=== PATIENT | female | born 1955 | race Caucasian/White ===

== ENCOUNTER → 2021-06-23 12:03 | Outpatient (CLI) | payer MEDICAID, SELFPAY ==
--- NOTE | 2021-06-23 12:06 | BI_ITS ---
MAMMOGRAPHY - BILATERAL SCREENING REASON FOR EXAM: Female, 65 years old. Routine annual screening examination. PERTINENT HISTORY: Non-contributory. TECHNIQUE: Digital bilateral breast chelo (3D mammographic acquisition) in the CC and MLO projections. 2-D mediolateral oblique (MLO) and craniocaudad (CC) views of both breasts were obtained. CAD: Full Field Digital Mammography with Computer Added Detection was performed. COMPARISON: Comparison is made with prior outside examination dated 10/22/2017. FINDINGS: Breast Composition: There are scattered areas of fibroglandular density. There are no dominant masses or suspicious calcifications. No other significant abnormalities are identified. There has been no significant change since the prior study. BI/SCRN MAMM (CAD)W/CHELO BILAT IMPRESSION: Stable bilateral screening mammogram. Yearly follow-up mammogram recommended. (A) ASSESSMENT CATEGORY: BIRADS Category 1: Negative. A letter regarding these results will be sent to the patient by the facility within 30 days. Approximately 10% of breast cancers are not detected by mammography. A normal mammogram should not delay biopsy of a clinically suspicious abnormality. [id number] Electronically Signed: Krystian Choi MD at 13:39 EDT , Service support ,
== END ==
PROVIDERS: PCP Family Medicine; Referring Provider Family Medicine; Visit Provider Family Medicine
DX: Z12.31 Encounter for screening mammogram for malignant neoplasm of breast (principal)
CPT/HCPCS: 77063; 77067

== ENCOUNTER → 2022-08-25 | Outpatient (CLI) | payer MEDICARE, SELFPAY ==
[2022-09-03 22:00] LABS: HPV Reflexed? NOT INDICATED
== END | disposition home or self-care (01) ==
LOC: BFHLAB 13:08 → LABSPEC 13:11
PROVIDERS: PCP Family Medicine; Visit Provider Family Medicine
DX: Z12.4 Encounter for screening for malignant neoplasm of cervix (principal)
CPT/HCPCS: 88175; G0145

== ENCOUNTER → 2022-09-23 | Outpatient (CLI) | payer BC, SELFPAY ==
--- NOTE | 2022-09-23 12:25 | BI_ITS ---
MAMMOGRAPHY - BILATERAL SCREENING REASON FOR EXAM: Female, 67 years old. Routine annual screening examination. PERTINENT HISTORY: Non-contributory. TECHNIQUE: Digital bilateral breast chelo (3D mammographic acquisition) in the CC and MLO projections. 2-D mediolateral oblique (MLO) and craniocaudad (CC) views of both breasts were obtained. CAD: Full Field Digital Mammography with Computer Added Detection was performed. COMPARISON: Comparison is made with prior study 06/23/2021. FINDINGS: Breast Composition: There are scattered areas of fibroglandular density. There are no dominant masses or suspicious calcifications. Stable benign-appearing bilateral axillary nodes. No other significant abnormalities are identified. There has been no significant change since the prior study. BI/SCRN MAMM (CAD)W/CHELO BILAT IMPRESSION: Stable bilateral screening mammogram. Yearly follow-up mammogram recommended. (A) ASSESSMENT CATEGORY: BIRADS Category 2: Benign. A letter regarding these results will be sent to the patient by the facility within 30 days. Approximately 10% of breast cancers are not detected by mammography. A normal mammogram should not delay biopsy of a clinically suspicious abnormality. [id number] Electronically Signed: Krystian Choi MD at 13:15 EST ,
== END | disposition home or self-care (01) ==
LOC: OPBI 12:22
PROVIDERS: PCP Family Medicine; Visit Provider Family Medicine
DX: Z12.31 Encounter for screening mammogram for malignant neoplasm of breast (principal)
CPT/HCPCS: 77063; 77067

== ENCOUNTER → 2023-10-14 | Outpatient (CLI) | payer BC, SELFPAY ==
[2023-10-14 17:45] LABS: Absolute Lymphocyte Count 2.06 X10^3/uL (0.83-4.51); Absolute Neutrophil Count 3.5 X10^3/uL (2.0-7.7); Basophil# 0.05 X10^3/uL; Basophil% 0.8 % (0-1); Eosinophil# 0.13 X10^3/uL; Eosinophils% 2.1 % (0-5); Hematocrit 39.5 % (37-47); Hemoglobin 12.8 g/dL (12.0-15.0); Lymphocyte # 2.06 X10^3/ul (0.83-4.51); Lymphocyte % 33.3 % (19-41); Mean Corp Hgb Conc 32.4 g/dL (32-36); Mean Corpuscular Hgb 29.6 pg (27.0-32.0); Mean Corpuscular Volume 91.4 fL (81-99); Mean Platelet Vol. 9.9 fl (6.2-12.0); Monocyte# 0.45 X10^3/uL; Monocyte% 7.3 % (0-10); NRBC Flagged by Analyzer 0 % (0-5); Neutrophil # 3.45 X10^3/uL (2.7-7.7); Neutrophil % 55.9 % (47-70); Platelet Count 344 K/mm3 (150-450); RBC Distribution Width CV 12.5 % (11.6-14.6); RBC Distribution Width SD 41.9 fl (35.1-43.9); Red Blood Count 4.32 M/mm3 (4.2-5.4); White Blood Count 6.2 K/mm3 (4.4-11.0)
[2023-10-14 18:14] LABS: AST(SGOT) 22 U/L (15-37); Alanine Aminotransfer ALT/SGPT 43 U/L (13-56); Albumin, Serum 3.8 g/dL (3.2-5.0); Alkaline Phosphatase 101 U/L (45-117); Bilirubin, Direct 0.15 mg/dL (0.00-0.30); Globulin 3.2 g/dL (2.2-4.2)
== END | disposition home or self-care (01) ==
LOC: BFHLAB 14:26
PROVIDERS: PCP Family Medicine; Visit Provider Family Medicine
DX: I10 Essential (primary) hypertension (principal); E11.9 Type 2 diabetes mellitus without complications
CPT/HCPCS: 36415; 80076; 85025

== ENCOUNTER → 2023-11-23 | Outpatient (CLI) | payer MEDICARE, MEDICAID, SELFPAY ==
--- NOTE | 2023-11-23 14:30 | US_ITS ---
EXAM: US Abdomen Limited (quadrant) HISTORY: LT FLANK LUMP COMPARISON: None FINDINGS: Sonographic evaluation of the left flank performed. There is a well-defined fat-containing hernia protruding through the musculature at the site of the palpable lump. The neck measures 2.6 cm, and the herniated fat measures 5.1 x 5.1 x 2.3 cm. US/Abdomen Limited IMPRESSION: Herniated adipose tissue protruding through the muscles in the lower left flank. Finding particularly documented on the cine loop. The neck measures 2.6 cm. Electronically Signed: Fish Dumas MD at 11:07 EDT ,
== END | disposition home or self-care (01) ==
PROVIDERS: PCP Family Medicine; Referring Provider Family Medicine; Visit Provider Family Medicine
DX: R19.00 Intra-abdominal and pelvic swelling, mass and lump, unspecified site (principal)
CPT/HCPCS: 76705

== ENCOUNTER → 2023-12-07 | Outpatient (CLI) | payer MEDICARE, MEDICAID, SELFPAY ==
--- NOTE | 2023-12-07 14:44 | BI_ITS ---
MAMMOGRAPHY - BILATERAL SCREENING REASON FOR EXAM: Female, 68 years old. Routine annual screening examination. PERTINENT HISTORY: Non-contributory. TECHNIQUE: Digital bilateral breast chelo (3D mammographic acquisition) in the CC and MLO projections. 2-D mediolateral oblique (MLO) and craniocaudad (CC) views of both breasts were obtained. CAD: Full Field Digital Mammography with Computer Added Detection was performed. COMPARISON: Comparison is made with prior study dated September 23, 2022 and June 23, 2021. FINDINGS: Breast Composition: There are scattered areas of fibroglandular density. There are no dominant masses or suspicious calcifications. Stable 2.8 mm well-defined nodule in the slightly superior central aspect of the left breast. A notch is seen within it and this most likely represents a small lymph node. No other significant abnormalities are identified. There has been no significant change since the prior study. BI/SCRN MAMM (CAD)W/CHELO BILAT IMPRESSION: Stable bilateral screening mammogram. Yearly follow-up mammogram recommended. (A) ASSESSMENT CATEGORY: BIRADS Category 2: Benign. A letter regarding these results will be sent to the patient by the facility within 30 days. Approximately 10% of breast cancers are not detected by mammography. A normal mammogram should not delay biopsy of a clinically suspicious abnormality. [id number] Electronically Signed: Krystian Choi MD at 9:21 EDT ,
--- NOTE | 2023-12-07 14:44 | BD_ITS ---
STUDY: DUAL ENERGY X-RAY ABSORPTIOMETRY / DXA REASON FOR EXAM: Female, 68 years old. [id number] TECHNIQUE: Bone Mineral Density (BMD) measurements of lumbar spine and bilateral hips were obtained. COMPARISON: None. FINDINGS: Lumbar Spine (L1-L4): g/cm2 (0.914) / T-score (-0.9) / Z-score (0.9) Findings are suggestive of normal bone density with a low fracture risk. Left Femur Total: g/cm2 (0.906) / T-score (-0.3) / Z-score (1.1) Left Femoral Neck: g/cm2 (0.805) / T-score (-0.4) / Z-score (1.2) Right Femur Total: g/cm2 (0.849) / T-score (-0.8) / Z-score (0.6) Right Femoral Neck: g/cm2 (0.729) / T-score (-1.1) / Z-score (0.6) BD/Dexa Bone Density Study IMPRESSION: The patient is considered osteopenic as outlined below according to World Lewis Organization (WHO) criteria with a low fracture risk. Reference Information: The T-score is the number of standard deviations above or below the standard which is normal for young adults at their peak bone mineral density. The World Health Organization (WHO) interprets the T-scores as follows: Above -1 Normal bone density Between -1 and -2.5 Osteopenia Equal to / or below -2.5 Osteoporosis As a practical clinical guideline, osteopenia may be graded as follows: Mild -1 through -1.5 Moderate -1.6 through -2.0 Severe -2.1 through -2.4 The Z-score is the number of standard deviations above or below age-matched controls. A Z-score of less than -1.5 would be considered abnormal. References: 1. NIH Osteoporosis and Related Bone Diseases www osteo.org 2. International Society for Clinical Densitometry www iscd.org 3. National Osteoporosis Foundation www nof.org Electronically Signed: Krystian Choi MD at 13:31 EDT ,
== END | disposition home or self-care (01) ==
LOC: OPBI 14:42
PROVIDERS: PCP Family Medicine; Referring Provider Family Medicine; Visit Provider Family Medicine
DX: Z12.31 Encounter for screening mammogram for malignant neoplasm of breast (principal); M81.0 Age-related osteoporosis without current pathological fracture
CPT/HCPCS: 77063; 77067; 77080

== ENCOUNTER 2024-05-25 10:00 | Outpatient (CLI) | payer MEDICARE, MEDICAID, SELFPAY ==
[2024-05-31 13:48] LABS: Hemoglobin A1c 6.3 % (3.8-5.6)
[2024-05-31 13:49] LABS: Anion Gap 7 (5-15); BUN 20 mg/dL (7-18); BUN/Creat Ratio 25.1 RATIO (10-20); Calcium,Total 9.5 mg/dL (8.5-10.1); Chloride 99 mmol/L (98-107); EST Glomerular Filtration Rate 76 mL/min (>60); Est Glom Filt Rate - Afr Amer 92 mL/min (>60); Glucose 101 mg/dL (74-106); Potassium 3.8 mmol/L (3.5-5.1); Sodium Level 138 mmol/L (136-145)
== END 2024-05-25 23:00 | disposition home or self-care (01) ==
LOC: SDC 11-15 21:44
PROVIDERS: Anesthesiology; PCP Family Medicine; Referring Provider Surgery; Visit Provider Surgery
DX: Z01.818 Encounter for other preprocedural examination (principal); Z53.9 Procedure and treatment not carried out, unspecified reason
CPT/HCPCS: 36415; 80048; 83036; 93005

== ENCOUNTER → 2024-06-09 | Outpatient (CLI) | payer MEDICARE, MEDICAID, SELFPAY ==
[2024-06-09 18:22] LABS: Microalbumin:Creatinine Ratio 8.1 mg/g CRE (<30 mg/g CRE)
[2024-06-09 18:42] LABS: Vitamin B12 > 2000 pg/mL (211-911)
== END | disposition home or self-care (01) ==
LOC: BFHLAB 14:56
PROVIDERS: PCP Family Medicine; Referring Provider Family Medicine; Visit Provider Family Medicine
DX: E11.9 Type 2 diabetes mellitus without complications (principal)
CPT/HCPCS: 36415; 82043; 82570; 82607

== ENCOUNTER → 2024-07-10 | Outpatient (CLI) | payer MEDICARE, MEDICAID, SELFPAY ==
--- OUTSIDE RECORDS SUMMARY | 2024-07-10 08:28 | XMS RPT_ITS | CCD ---
Author Organization [facility] Care Team Providers Care [employer] Supervisor Name Role Phone Denisse TELLO, Sandra Dang Unavailable [phone] Alden SMITH, Kam Stone Unavailable [phone] MIEDEL, SUJATHA Primary Care Unavailable MIEDEL, SUJATHA Referring Unavailable ANA LOVE Attending Unavailable ISFANA ACKERMAN Attending Unavailable ISFORTANA Referring Unavailable MIEDEL, SUJATHA Primary Care Unavailable MIEDEL, SUJATHA Primary Care Unavailable MIEDEL, SUJATHA Primary Care Unavailable MIEDEL, SUJATHA Referring Unavailable ISFANA ACKERMAN Attending Unavailable MIEDEL, SUJATHA E Primary Care Unavailable DAMARISPITER Admitting Unavailabl e PITER OCAMPO Consulting Unavailabl PITER [place]on Attending Unavailabl e ISFANA ACKERMAN Referring Unavailable MIEDEL, SUJATHA E Primary Care Unavailable ANA LOVE Attending Unavailable ANA LOVE Referring Unavailable MIEDEL, SUJATHA E Primary Care Unavailable ANA LOVE Attending Unavailable MIEDEL, SUJATHA Admitting Unavailable MIEDEL, SUJATHA Primary Care Unavailable MIEDEL, SUJATHA Consulting Unavailable MIEDEL, SUJATHA Attending Unavailable PROVIDER, UNKNOWN Consulting Unavailable PROVIDER, UNKNOWN Consulting Unavailable MIEDEL, SUJATHA Primary Care Unavailable MIEDEL, SUJATHA Consulting Unavailable MIEDEL, SUJATHA Attending Unavailable MIEDEL, SUJATHA Admitting Unavailable PROVIDER, UNKNOWN Consulting Unavailable PROVIDER, UNKNOWN Consulting Unavailable MIEDEL, SUJATHA Primary Care Unavailable MIEDEL, SUJATHA Consulting Unavailable MIEDEL, SUJATHA Attending Unavailable MIEDEL, SUJATHA Admitting Unavailable PROVIDER, UNKNOWN Consulting Unavailable PROVIDER, UNKNOWN Consulting Unavailable LUCINDA MCELROY DO Admitting Unavailable LUCINDA MCELROY DO Primary Care Unavailable SUJATHA SILVERIO Consulting Unavailable LUCINDA MCELROY DO Attending Unavailable SUJATHA SILVERIO Referring Unavailable PROVIDER, UNKNOWN Consulting Unavailable PROVIDER, UNKNOWN Consulting Unavailable Allergies Allergy Classification Reported Allergen(s) Allergy Type Date of Onset Reaction(s) Facility (3 sources) Sulfonamides (Antibiotic) drug allergy 2 hives and can't breathe [facility] Work Phone: (1 source) Sulfonamides (Antibiotic); Translations: [SULFA (SULFONAMIDE ANTIBIOTICS)] Propensity to adverse reactions to drug (disorder) 2 [facility] Repository (1 source) Sulfonamides (Antibiotic) Drug allergy (disorder) [facility] Repository Medications Current Medications Medication Drug Class(es) Dates Sig (Normalized) Sig (Original) baclofen 10 mg oral tablet (2 sources) gamma-Aminobutyric Acid-ergic Agonist Start: 10-24-2021 End: 12-23-2021 take 1 tablet by mouth three times daily as needed BACLOFEN 10 MG TABS Take 1 tablet by mouth three times a day as needed baclofen [id number] Remedios Ingram LPN meloxicam 15 mg oral tablet (1 source) Nonsteroidal Anti-inflammatory Drug Start: 12-17-2021 End: 02-15-2022 take 1 tablet by mouth once daily MELOXICAM 15 MG TABS Take 1 tablet by mouth once a day meloxicam [id number] Sandra Salcedo MD Completed/Discontinued Medications Medication Drug Class(es) Dates Sig (Normalized) Sig (Original) atenolol 25 mg oral tablet (3 sources) beta-Adrenergic Ingrid Start: 3 take 1 tablet by mouth once daily ATENOLOL 25 MG TABS 1 tablet by mouth once a day atenolol [id number] Lupe Lorence AT 24 hr buPROPion hydrochloride 150 mg extended release oral tablet (3 sources) Aminoketone Start: 0 take 1 tablet by mouth once daily BUPROPION HCL ER (XL) 150 MG [id number] 1 tablet by mouth once a day bupropion hcl [id number] Lupe Lorence AT escitalopram 10 mg oral tablet (3 sources) Serotonin Reuptake Inhibitor Start: 0 take 1 tablet by mouth once daily ESCITALOPRAM OXALATE 10 MG TABS 1 tablet by mouth once a day escitalopram oxalate [id number] Lupe Lorence AT famotidine 20 mg oral tablet (3 sources) Histamine-2 Receptor Antagonist Start: 0 FAMOTIDINE 20 MG TABS 1 tablet twice a day famotidine [id number] Lupe Lorence AT gabapentin 300 mg oral capsule (3 sources) Anti-epileptic Agent Start: 0 GABAPENTIN 300 MG CAPS Take 0-3 capsule by mouth three times a day as needed gabapentin [id number] Remedios Ingram LPN hydroCHLOROthiazide 25 mg oral tablet (3 sources) Thiazide Diuretic Start: 0 take 1 tablet by mouth once daily HYDROCHLOROTHIAZIDE 25 MG TABS 1 tablet by mouth once a day hydrochlorothiazide 81306675210 Lupe Lorence AT magnesium oxide 400 mg oral tablet (3 sources) Start: 0 take 1 tablet by mouth once daily MAGNESIUM OXIDE 400 MG TABS 1 tablet by mouth once a day magnesium oxide [id number] Lupe Lorence AT metFORMIN hydrochloride 500 mg oral tablet (3 sources) Biguanide Start: 3 take 1 tablet by mouth once daily METFORMIN HCL 500 MG TABS 1 tablet by mouth once a day metformin [id number] Lupe Lorence AT Potassium (3 sources) Start: 0 POTASSIUM 99 MG TABS 1 tablet once a day POTASSIUM Lupe Lorence AT Problems Active Problems Problem Classification Problem Date Documented Date Episodic/Chronic Conditions associated with dizziness or vertigo (2 sources) Dizziness and giddiness; Translations: [Dizziness and giddiness] Onset: 11-08-2023 Episodic Diabetes mellitus without complication (6 sources) Diabetes mellitus; Translations: [Type 2 diabetes mellitus without complications] Onset: 07-17-2020 07-17-2020 Chronic Disorders of lipid metabolism (1 source) Pure hyperglyceridemia; Translations: [Pure hyperglyceridemia] Onset: 05-09-2024 Chronic E Codes: Fall (2 sources) Fall on same level, unspecified, initial encounter; Translations: [Fall on same level, unspecified, initial encounter] Onset: 11-08-2023 Episodic Essential hypertension (1 source) Essential (primary) hypertension; Translations: [Essential (primary) hypertension] Onset: 05-09-2024 Chronic Headache; including migraine (2 sources) Headache; including migraine; Translations: [Headache, unspecified] Onset: 03-03-2023 Malaise and fatigue (2 sources) Chronic fatigue, unspecified; Translations: [Chronic fatigue, unspecified] Onset: 01-25-2023 Chronic Nutritional deficiencies (3 sources) Vitamin D deficiency; Translations: [Vitamin D deficiency, unspecified] Onset: 01-04-2020 01-04-2020 Chronic Osteoarthritis (6 sources) Arthritis of hip; Translations: [Unspecified osteoarthritis, unspecified site] Onset: 10-30-2015 02-12-2016 Chronic Other connective tissue disease (3 sources) Pain in right lower limb; Translations: [Pain in right leg] Onset: 10-24-2021 10-24-2021 Episodic Other connective tissue disease (2 sources) Cramp and spasm; Translations: [Cramp and spasm] Onset: 02-18-2023 Episodic Other connective tissue disease (2 sources) Other specified disorders of muscle; Translations: [Other specified disorders of muscle] Onset: 02-18-2023 Episodic Other connective tissue disease (2 sources) Muscle weakness (generalized); Translations: [Muscle weakness (generalized)] Onset: 02-18-2023 Episodic Other connective tissue disease (2 sources) Other symptoms and signs involving the musculoskeletal system; Translations: [Other symptoms and signs involving the musculoskeletal system] Onset: 11-08-2023 Episodic Other connective tissue disease (3 sources) Other muscle spasm; Translations: [Other muscle spasm] Onset: 04-25-2024 Episodic Other nervous system disorders (3 sources) Carpal tunnel syndrome, left upper limb; Translations: [Carpal tunnel syndrome] Onset: 05-08-2020 05-08-2020 Chronic Other nervous system disorders (2 sources) Muscular dystrophy, unspecified; Translations: [Muscular dystrophy, unspecified] Onset: 03-27-2023 Chronic Other nervous system disorders (2 sources) Other chronic pain; Translations: [Other chronic pain] Onset: 03-18-2023 Chronic Other nutritional; endocrine; and metabolic disorders (2 sources) Body mass index (BMI) 32.0-32.9, adult; Translations: [Body mass index (BMI) 32.0-32.9, adult] Onset: 01-25-2023 Chronic Spondylosis; intervertebral disc disorders; other back problems (12 sources) Inflammation of sacroiliac joint; Translations: [Sacroiliitis, not elsewhere classified] Onset: 02-12-2016 02-24-2021 Chronic Sprains and strains (7 sources) Tendon rupture - hip; Translations: [Strain of muscle, fascia and tendon of unspecified hip, subsequent encounter] Onset: 10-30-2015 10-30-2015 Episodic Unclassified (1 source) Low back pain, unspecified; Translations: [Low back pain, unspecified] Onset: 03-18-2023 Past or Other Problems Problem Classification Problem Date Documented Date Episodic/Chronic Anal and rectal conditions (2 sources) Other specified diseases of anus and rectum; Translations: [Other specified diseases of anus and rectum] Onset: 03-18-2023 Episodic Complications of surgical procedures or medical care (3 sources) Stitch abscess; Translations: [Infection following a procedure, superficial incisional surgical site, initial encounter] Onset: 03-07-2020 03-07-2020 Episodic Other acquired deformities (3 sources) Lumbar spondylolisthesis; Translations: [Spondylolisthesis, lumbar region] Onset: 10-26-2019 10-26-2019 Episodic Other connective tissue disease (3 sources) Biceps tendinitis; Translations: [Bicipital tendinitis, right shoulder] Onset: 02-24-2021 02-24-2021 Episodic Other connective tissue disease (3 sources) Laxity of ligament; Translations: [Disorder of ligament, unspecified site] Onset: 08-05-2020 08-05-2020 Episodic Other connective tissue disease (3 sources) Tenosynovitis of fingers; Translations: [Synovitis and tenosynovitis, unspecified] Onset: 06-05-2020 06-05-2020 Episodic Other connective tissue disease (3 sources) History of lumbar fusion; Translations: [Arthrodesis status] Onset: 02-08-2020 02-08-2020 Episodic Other connective tissue disease (3 sources) Paresis of lower extremity; Translations: [Other symptoms and signs involving the musculoskeletal system] Onset: 10-26-2019 10-26-2019 Episodic Other non-traumatic joint disorders (3 sources) Shoulder pain; Translations: [Pain in right shoulder] Onset: 02-24-2021 02-24-2021 Episodic Spondylosis; intervertebral disc disorders; other back problems (5 sources) Spinal stenosis in cervical region; Translations: [Spinal stenosis, cervical region] Onset: 07-17-2020 07-17-2020 Episodic Unclassified (3 sources) Problem Unclassified (1 source) Low back pain, unspecified; Translations: [Low back pain, unspecified] Onset: 03-18-2023 Results Test Name Value Interpretation Reference Range Facility CBC + DIFFon 06-08-2024 Baso # 0.03 x10EE3/UL Normal 0.00 - 0.10 [facility] Comment on above: Performed By: #### 2 [id number] #### [place] [address] Basophils/100 WBC (Bld) 0.5 % Normal 0.0 - 2.0 [facility] Comment on above: Performed By: #### 2 15100 #### [place] [address] CBC + DIFF Normal [facility] Comment on above: Result Comment: CBC- COMPLETE BLOOD COUNT Performed By: #### 2 77151 #### [place] [address] EO # 0.15 x10EE3/UL Normal 0.00 - 0.50 [facility] Comment on above: Performed By: #### 2 98232 #### [place] [address] Eosinophils/100 WBC (Bld) 2.4 % Normal 0.0 - 7.0 [facility] Comment on above: Performed By: #### 2 50141 #### [place] [address] Erythrocyte distribution width (RBC) [Ratio] 13.5 % Normal 12.0 - 15.6 [facility] Comment on above: Performed By: #### 2 50014 #### [facility],[address] [place] [address] Hematocrit (Bld) [Volume fraction] 39.1 % Normal 34.0 - 46.0 [facility] Comment on above: Performed By: #### 2 98458 #### [facility],[address] [place] [address] Hemoglobin (Bld) [Mass/Vol] 13.3 g/dL Normal 12.0 - 16.0 [facility] Comment on above: Performed By: #### 2 37508 #### [facility],[address] [place] [address] Lymph # 2.38 x10EE3/UL Normal 0.80 - 2.80 [facility] Comment on above: Performed By: #### 2 08462 #### [facility],[address] [place] [address] Lymphocytes/100 WBC (Bld) 38.2 % Normal 20.0 - 45.0 [facility] Comment on above: Performed By: #### 2 43971 #### [facility],[address] [place] [address] MANUAL DIFF N/A Normal [facility] Comment on above: Performed By: #### 2 30623 #### [facility],[address] [place] [address] MCH (RBC) [Entitic mass] 30 pg Normal 27 - 33 [facility] Comment on above: Performed By: #### 2 85207 #### [facility],[address] [place] [address] MCHC 34 X10 3 Normal 32 - 36 [facility] Comment on above: Performed By: #### 2 63840 #### [facility],[address] [place] [address] MCV (RBC) [Entitic vol] 87 fL Normal 80 - 99 [facility] Comment on above: Performed By: #### 2 94774 #### [facility],[address] [place] [address] [place] # 0.40 x10EE3/UL Normal 0.20 - 1.00 [facility] Comment on above: Performed By: #### 2 21498 #### [facility],[address] [place] [address] MONOS % 6.4 % Normal 0.0 - 10.0 [facility] Comment on above: Performed By: #### 2 14089 #### [facility],[address] [place] [address] Morphology Brian (Bld) [Interp] N/A Normal [facility] Comment on above: Performed By: #### 2 93777 #### [facility],[address] [place] [address] Neut # 3.28 x10EE3/UL Normal 1.50 - 7.10 [facility] Comment on above: Performed By: #### 2 27550 #### [facility],[address] [place] [address] Neutrophils/100 WBC (Bld) 52.6 % Normal 46.0 - 76.0 [facility] Comment on above: Performed By: #### 2 69691 #### [facility],[address] [place] [address] PLATELET 287 x10EE3/UL Normal 150 - 450 [facility] Comment on above: Performed By: #### 2 32249 #### [facility],[address] [place] [address] Platelet mean volume (Bld) [Entitic vol] 7.7 fL Normal 6.6 - 10.5 [facility] Comment on above: Result Comment: AUTO MATED DIFFERENTIAL Performed By: #### 2 07011 #### [facility],[address] [place] [address] 17087 RBC 4.51 x 10EE6/UL Normal 4.10 - 5.[address] [facility] Comment on above: Performed By: #### 2 70505 #### [facility],[address] [place] [address]87 WBC 6.2 x 10EE3/UL Normal 4.5 - 10.8 [facility] Comment on above: Performed By: #### 2 61364 #### [facility],[address] [place] [address] CMP with eGFRon 06-08-2024 AGE 68 years Normal [facility] Comment on above: Performed By: #### 2 82217 #### [facility],[address] [place] [address] 45492 Albumin [Mass/Vol] 4.2 g/dL Normal 3.4 - 5.0 [facility] Comment on above: Performed By: #### 2 57727 #### [facility],[address] [place] [address]64 Albumin/Globulin [Mass ratio] 1.6 {ratio} Normal 0.9 - 1.6 [facility] Comment on above: Performed By: #### 2 09084 #### [facility],[address] [place] [address] 05102 ALK PHOS 74 U/L Normal 46 - 116 [facility] Comment on above: Performed By: #### 2 68646 #### [facility],[address] [place] [address] 55823 ALT [Catalytic activity/Vol] 26 U/L Normal 16 - 63 [facility] Comment on above: Performed By: #### 2 50692 #### [facility],[address] [place] [address] 22451 Anion gap [Moles/Vol] 16 mmol/L Normal 10 - 20 [facility] Comment on above: Performed By: #### 2 76712 #### [facility],[address] [place] [address] 17886 AST [Catalytic activity/Vol] 30 U/L Normal 13 - 39 [facility] Comment on above: Performed By: #### 2 69110 #### [facility],[address] [place] [address] 74455 B/C RATIO 18 ratio Normal 0 - 30 [facility] Comment on above: Performed By: #### 2 33176 #### [facility],[address] [place] [address] 38415 Bilirubin [Mass/Vol] 0.7 mg/dL Normal 0.2 - 1.0 [facility] Comment on above: Performed By: #### 2 88842 #### [facility],[address] [place] [address] 74667 Calcium [Mass/Vol] 9.2 mg/dL Normal 8.5 - 10.1 [facility] Comment on above: Performed By: #### 2 59949 #### [facility],[address] [place] [address] 84688 Chloride [Moles/Vol] 97 mmol/L Low 98 - 107 [facility] Comment on above: Performed By: #### 2 54878 #### [facility],[address] [place] [address] 48215 CMP with eGFR Normal [facility] Comment on above: Result Comment: COMP REHENSIVE METABOLIC PANEL Performed By: #### 2 80413 #### [facility],[address] [place] [address] 34388 CO2 [Moles/Vol] 29.3 mmol/L Normal 21.0 - 32.0 [facility] Comment on above: Performed By: #### 2 80512 #### [facility],[address] [place] [address] 29020 Creatinine [Mass/Vol] 0.83 mg/dL Normal 0.55 - 1.02 [facility] Comment on above: Performed By: #### 2 62801 #### [facility],[address] [place] [address]288 GFR/1.73 sq M.predicted among non-blacks MDRD (S/P/Bld) [Vol rate/Area] mL/min/{1.73_m2} Normal 60 - 999 [facility] Comment on above: Performed By: #### 2 12056 #### [facility],[address] [place] [address] Result Comment: ACCO RDING TO THE NATIONAL KIDNEY DISEASE EDUCATION PROGRAM(NKDE), A NORMAL eGFR IS A VALUE GREATER THAN OR EQUAL TO 60 ML/MIN/1.73 SQ METERS. CHRONIC KIDNEY DISEASE: <60mL/MIN/1.73 SQ METERS KIDNEY FAILURE: <15mL/MIN/1.73 SQ METERS THIS TEST SHOULD ONLY BE USED FOR PATIENTS 18 YEARS OF AGE AND OLDER. Globulin (S) [Mass/Vol] 2.7 g/dL Normal 1.5 - 3.8 [facility] Comment on above: Performed By: #### 2 21880 #### [facility],[address] [place] [address] 43451 Glucose [Mass/Vol] 95 mg/dL Normal 74 - 106 [facility] Comment on above: Performed By: #### 2 40562 #### [facility],[address] [place] [address] 78257 Potassium [Moles/Vol] 3.8 mmol/L Normal 3.5 - 5.1 [facility] Comment on above: Performed By: #### 2 46469 #### [facility],[address] [place] [address] 73776 Protein [Mass/Vol] 6.9 g/dL Normal 6.4 - 8.2 [facility] Comment on above: Performed By: #### 2 30458 #### [facility],[address] [place] [address] 08614 Sodium [Moles/Vol] 138 mmol/L Normal 136 - 145 [facility] Comment on above: Performed By: #### 2 07572 #### [facility],[address] [place] [address] 91006 Urea nitrogen [Mass/Vol] 15 mg/dL Normal 7 - 18 [facility] Comment on above: Performed By: #### 2 70901 #### [facility],[address] [place] [address] 70483 CPKon 06-08-2024 CPK 927 U/L High 26 - 192 [facility] Comment on above: Performed By: #### 2 34051 #### [facility],[address] [place] [address] BRAIN W/O CONTRASTon 05-15 CT BRAIN W/O CONTRAST [address] [address] Patient: FELECIA THOMPSON Phone#: : [phone] Age: 68 Gender: F Pt. Type: ER Account: [id number] Location: [facility] Ordering: SALVADOR RAHMAN Exam Date: 06/08/2024/17:23 Family Phys: SUJATHA SILVERIO Charge Code: [id number] Physician: [place] Order #: [id number] Dose#: 52.3 mGy PROCEDURE: CT BRAIN WITHOUT CONTRAST COMPARISON: None. INDICATIONS: Trauma. TECHNIQUE: CT images were obtained without contrast material. All CT scans at this facility use dose modulation, iterative reconstruction, and/or weight based dosing when appropriate to reduce radiation dose to as low as reasonably achievable. IV CONTRAST: No IV contrast used,0.0ml TOTAL DOSE: 52.3 CTDIvol(mGy) FINDINGS: CEREBRUM: Age-appropriate atrophy is present, without visible acute hemorrhage or lesion. CEREBELLUM: No edema, hemorrhage, mass, acute infarction, or inappropriate atrophy. BRAINSTEM: No edema, hemorrhage, mass, acute infarction, or inappropriate atrophy. CSF SPACES: Ventricles, cisterns, and sulci are appropriate for age. No hydrocephalus, subarachnoid hemorrhage, or mass. SKULL: No mass or other significant visible lesion. SINUSES: Limited views demonstrate no significant mucosal thickening or fluid. ORBITS: Limited views are unremarkable. OTHER: Negative. CONCLUSION: 1. There is no evidence of acute intracranial abnormality. Dictated by: Yolis Eldridge MD on 06/08/2024 at 17:52 Approved by: Yolis Eldridge MD on 06/08/2024 at 17:54 Normal [facility] CT CERVICAL W/O CONTRASTon 0 06-08-2024 CT CERVICAL W/O CONTRAST [place] [address] Patient: FELECIA THOMPSON Phone#: : [phone] Age: 68 Gender: F Pt. Type: ER Account: [id number] Location: [facility] Ordering: SALVADOR RAHMAN Exam Date: 06/08/2024/17:23 Family Phys: SUJATHA SILVERIO Charge Code: [id number] Physician: [place] Order #: [id number] Dose#: 9.9 mGy PROCEDURE: CT CERVICAL WITHOUT CONTRAST COMPARISON: None. INDICATIONS: Trauma. TECHNIQUE: Multi-planar CT images were created without intravenous contrast. All CT scans at this facility use dose modulation, iterative reconstruction, and/or weight-based dosing when appropriate to reduce radiation dose to as low as reasonably achievable. IV CONTRAST: No IV contrast used,0.0ml TOTAL DOSE: 9.9 CTDIvol(mGy) FINDINGS: CRANIOCERVICAL AREA: Normal foramen magnum with no Chiari malformation. PARASPINAL AREA: Normal with no visible mass. BONES: Surgical hardware is present at the C5-6 level. Disc spacer is present. CERVICAL DISC LEVELS: C2-C3: Bony hypertrophy is present at the right articular facet. There is mild right foraminal narrowing. C3-C4: Bony hypertrophy is present. There is mild bilateral foraminal narrowing. C4-C5: Disc space narrowing is present. Bony hypertrophy is present greater on the right than the left. There is bilateral foraminal narrowing greater on the right. C5-C6: Disc prosthesis is present. There is bony hypertrophy at the articular facettes. There is mild bilateral foraminal narrowing. C6-C7: No significant disc/facet abnormality, spinal stenosis, or foraminal stenosis. C7-T1: No significant disc/facet abnormality, spinal stenosis, or foraminal stenosis. CONCLUSION: 1. Degenerative changes are present. There is bony hypertrophy with foraminal narrowing. 2. There is no evidence of acute fracture or subluxation. Continued Report - Page 2 of 2 Patient: FELECIA THOMPSON Phone#: : [phone] Age: 68 Gender: F Pt. Type: ER Account: [id number] Location: 052 Ordering: SALVADOR RAHMAN Exam Date: 06/08/2024/17:23 Family Phys: SUJATHA SILVERIO Charge Code: [id number] Physician: [place] Order #: [id number] Dose#: 9.9 mGy Dictated by: Yolis Eldridge MD on 06/08/2024 at 17:54 Approved by: Yolis Eldridge MD on 06/08/2024 at 18:05 Normal [facility] CT CHEST/ABD/PELVIS C-on CT CHEST/ABD/PELVIS [place] [address] Patient: FELECIA THOMPSON Phone#: : [phone] Age: 68 Gender: F Pt. Type: ER Account: [id number] Location: 052 Ordering: SALVADOR RAHMAN Exam Date: 06/08/2024/17:29 Family Phys: SUJATHA SILVERIO Charge Code: [id number] Physician: [place] Order #: [id number] Dose#: 9.00 mGy PROCEDURE: CT CHEST/ABD/PELVIS WO COMPARISON: None. INDICATIONS: Trauma. TECHNIQUE: CT images were obtained without the administration of intravenous contrast material. All CT scans at this facility use dose modulation, iterative reconstruction, and/or weight based dosing when appropriate to reduce radiation dose to as low as reasonably achievable. IV CONTRAST: No IV contrast used,0.0ml TOTAL DOSE: 9.00 CTDIvol(mGy) FINDINGS: LUNGS: Normal. No visible pulmonary disease. VASCULATURE: Normal. Thrombus cannot be excluded without intravenous contrast. GLADYS: Normal. No mass or adenopathy. MEDIASTINUM: Normal. No mass or adenopathy. CARDIAC: Normal. No enlargement, pericardial thickening, or significant calcification. PLEURA: Normal. No mass or effusion. CHEST WALL: Normal. No mass or axillary adenopathy. LIVER: Normal. No enlargement, atrophy, abnormal density, or significant focal lesion. BILIARY: Multiple calculi are present in the dependent aspect of the gallbladder. There is no evidence of biliary dilatation. PANCREAS: Normal. No lesion, fluid collection, ductal dilatation, or atrophy. SPLEEN: Normal. No enlargement or focal lesion. KIDNEYS: Normal. No mass, obstruction, or calcification. ADRENALS: Normal. No mass or enlargement. AORTA/VASCULAR: Aortic calcification is present. There is no evidence of aneurysm. RETROPERITONEUM: Normal. No mass or adenopathy. BOWEL/MESENTERY: Normal. No visible mass, obstruction, or bowel wall thickening. ABDOMINAL WALL: Normal. No mass or hernia. Continued Report - Page 2 of 2 Patient: FELECIA THOMPSON Phone#: : [phone] Age: 68 Gender: F Pt. Type: ER Account: [id number] Location: 2 Ordering: SALVADOR RAHMAN Exam Date: 06/08/2024/17:29 Family Phys: SUJATHA SILVERIO Charge Code: [id number] Physician: [place] Order #: [id number] Dose#: 9.00 mGy URINARY BLADDER: Normal. No visible focal wall thickening, lesion, or calculus. PELVIC NODES: Normal. No adenopathy. PELVIC ORGANS: The uterus is absent. BONES: Surgical hardware is present at the L4 and 5 level. Disc prosthesis is present. There is no evidence of acute bone abnormality. Curvature of the lumbar spine to the left is present. Degenerative changes are present the acromioclavicular joints bilaterally. OTHER: Negative. CONCLUSION: 1. Cholelithiasis. 2. There is no evidence of acute thoracic, abdominal or pelvic abnormality. 3. There is no evidence of acute bone abnormality. Dictated by: Yolis Eldridge MD on 06/08/2024 at 18:06 Approved by: Yolis Eldridge MD on 06/08/2024 at 18:11 Normal [facility] URINALYSIS WITH MICROSCOPYon 06-08-2024 Amorphous NONE Normal [facility] Comment on above: Performed By: #### 2 18243 #### [facility],[address] [place] [address] 28249 Bacteria NONE Normal [facility] Comment on above: Performed By: #### 2 14128 #### [facility],[address] [place] [address] 74080 Bilirubin Ql (U) Negative Normal NORMAL: NEGATIVE [facility] Comment on above: Performed By: #### 2 66181 #### [facility],[address] [place] [address] 72240 Casts NONE Normal [facility] Comment on above: Performed By: #### 2 86851 #### [facility],[address] [place] [address] 37633 Clarity (U) clear Normal NORMAL: CLEAR [facility] Comment on above: Performed By: #### 2 70416 #### [facility],[address] [place] [address] 02179 Color (U) yellow Normal NORMAL: YELLOW [facility] Comment on above: Performed By: #### 2 45395 #### [facility],[address] [place] [address] 65691 Crystals LM Nom (Urine sed) NONE Normal [facility] Comment on above: Performed By: #### 2 13412 #### [facility],[address] [place] [address] 48264 Epi Cells FEW Normal [facility] Comment on above: Performed By: #### 2 96676 #### [facility],[address] [place] [address] 45327 Glucose Ql (U) NORM Normal NORMAL: NORMAL [facility] Comment on above: Performed By: #### 2 94365 #### [facility],[address] [place] [address] 33730 Hemoglobin Ql (U) Negative Normal NORMAL: NEGATIVE [facility] Comment on above: Performed By: #### 2 46478 #### [facility],[address] [place] [address] 53497 Ketone Negative Normal NORMAL: NEGATIVE [facility] Comment on above: Performed By: #### 2 30092 #### [facility],[address] [place] [address] 69272 Leukocytes 100 Abnormal NORMAL: NEGATIVE [facility] Comment on above: Result Comment: URIN E MICROSCOPIC Performed By: #### 2 35532 #### [facility],[address] [place] [address] 30926 Mucous NONE Normal [facility] Comment on above: Performed By: #### 2 12929 #### [facility],[address] [place] [address] 95326 Nitrite Ql (U) Negative Normal NORMAL: NEGATIVE [facility] Comment on above: Performed By: #### 2 10890 #### [facility],[address] [place] [address] 56207 pH (U) 6 [pH] Normal NORMAL: 5.0-8.0 [facility] Comment on above: Performed By: #### 2 25265 #### [facility],[address] [place] [address] 15476 Protein Ql (U) Negative Normal NORMAL: NEGATIVE [facility] Comment on above: Performed By: #### 2 21930 #### [facility],[address] [place] [address] 34965 Rbc NONE Normal 0-3 / hpf [facility] Comment on above: Performed By: #### 2 82278 #### [facility],[address] [place] [address] 94697 Sp [place] 1.020 Normal NORMAL: 1.010-1.030 [facility] Comment on above: Performed By: #### 2 63328 #### [facility],[address] [place] [address] Specimen Type URINE Normal [facility] Comment on above: Performed By: #### 2 83967 #### [facility],[address] [place] [address] URINALYSIS WITH MICROSCOPY Normal [facility] Comment on above: Result Comment: URIN ALYSIS Performed By: #### 2 32547 #### [facility],[address] [place] [address] Urobilinog NORM Normal NORMAL: NORMAL [facility] Comment on above: Performed By: #### 2 37944 #### [facility],[address] [place] [address] Wbc 1-5 Normal 0-5 / hpf [facility] Comment on above: Performed By: #### 2 45486 #### [facility],[address] [place] [address] Yeast NONE Normal [facility] Comment on above: Performed By: #### 2 82923 #### [facility],[address] [place] [address] URINE MICROALBUMIN W/CREATIN INE, RANDOMon 05-09-2024 CREATININE UR 53.63 mg/dl Normal [facility] Comment on above: Performed By: #### 2 22236 #### [facility],[address] [place] [address] MICROALBUMIN UR 0.4 mg/dL Normal 0.1 - 11.6 [facility] Comment on above: Performed By: #### 2 45020 #### [facility],[address] [place] [address] UACR 7 mg/g Normal [facility] Comment on above: Performed By: #### 2 39341 #### [facility],[address] [place] [address] CBC + DIFFon 05-03-2024 Baso # 0.02 x10EE3/UL Normal 0.00 - 0.10 [facility] Comment on above: Performed By: #### 2 82938 #### [facility],[address] [place] [address] Basophils/100 WBC (Bld) 0.4 % Normal 0.0 - 2.0 [facility] Comment on above: Performed By: #### 2 64711 #### [facility],[address] [place] [address] CBC + DIFF Normal [facility] Comment on above: Result Comment: CBC- COMPLETE BLOOD COUNT Performed By: #### 2 15299 #### [facility],[address] [place] [address] EO # 0.13 x10EE3/UL Normal 0.00 - 0.50 [facility] Comment on above: Performed By: #### 2 55865 #### [facility],[address] [place] [address] Eosinophils/100 WBC (Bld) 2.6 % Normal 0.0 - 7.0 [facility] Comment on above: Performed By: #### 2 87655 #### [facility],[address] [place] [address] Erythrocyte distribution width (RBC) [Ratio] 13.4 % Normal 12.0 - 15.6 [facility] Comment on above: Performed By: #### 2 08590 #### [facility],[address] [place] [address] Hematocrit (Bld) [Volume fraction] 39.4 % Normal 34.0 - 46.0 [facility] Comment on above: Performed By: #### 2 40963 #### [facility],[address] [place] [address] Hemoglobin (Bld) [Mass/Vol] 13.3 g/dL Normal 12.0 - 16.0 [facility] Comment on above: Performed By: #### 2 23082 #### [facility],[address] [place] [address] Lymph # 1.92 x10EE3/UL Normal 0.80 - 2.80 [facility] Comment on above: Performed By: #### 2 56010 #### [facility],[address] [place], [place] [id number] Lymphocytes/100 WBC (Bld) 38.9 % Normal 20.0 - 45.0 [facility] Comment on above: Performed By: #### 2 35034 #### [facility],[address] [place] [address] MANUAL DIFF N/A Normal [facility] Comment on above: Performed By: #### 2 93224 #### [facility],[address] [place] [address] MCH (RBC) [Entitic mass] 30 pg Normal 27 - 33 [facility] Comment on above: Performed By: #### 2 71103 #### [facility],[address] [place] [address] MCHC 34 X10 3 Normal 32 - 36 [facility] Comment on above: Performed By: #### 2 84523 #### [facility],[address] [place], [place] [id number] MCV (RBC) [Entitic vol] 88 fL Normal 80 - 99 [facility] Comment on above: Performed By: #### 2 57575 #### [facility],[address] [place] [address] 63495 [place] # 0.35 x10EE3/UL Normal 0.20 - 1.00 [facility] Comment on above: Performed By: #### 2 58852 #### [facility],[address] [place] [address] 35363 MONOS % 7.0 % Normal 0.0 - 10.0 [facility] Comment on above: Performed By: #### 2 25684 #### [facility],[address] [place] [address] 58633 Morphology Brian (Bld) [Interp] N/A Normal [facility] Comment on above: Performed By: #### 2 89269 #### [facility],[address] [place] [address] 61566 Neut # 2.52 x10EE3/UL Normal 1.50 - 7.10 [facility] Comment on above: Performed By: #### 2 30637 #### [facility],[address] [place] [address] 26810 Neutrophils/100 WBC (Bld) 51.0 % Normal 46.0 - 76.0 [facility] Comment on above: Performed By: #### 2 51254 #### [facility],[address] [place] [address] 11318 PLATELET 301 x10EE3/UL Normal 150 - 450 [facility] Comment on above: Performed By: #### 2 51145 #### [facility],[address] [place] [address] 72216 Platelet mean volume (Bld) [Entitic vol] 7.8 fL Normal 6.6 - 10.5 [facility] Comment on above: Result Comment: AUTO MATED DIFFERENTIAL Performed By: #### 2 23272 #### [facility],[address] [place] [address] 76579 RBC 4.48 x 10EE6/UL Normal 4.10 - 5.[address] [facility] Comment on above: Performed By: #### 2 49700 #### [facility],[address] [place] [address] 86706 WBC 4.9 x 10EE3/UL Normal 4.5 - 10.8 [facility] Comment on above: Performed By: #### 2 95856 #### [facility],[address] [place] [address] 48249 CMP with eGFRon 05-03-2024 AGE 68 years Normal [facility] Comment on above: Performed By: #### 2 22089 #### [facility],[address] [place] [address] 32589 Albumin [Mass/Vol] 3.8 g/dL Normal 3.4 - 5.0 [facility] Comment on above: Performed By: #### 2 71016 #### [facility],[address] [place] [address] 49927 Albumin/Globulin [Mass ratio] 1.3 {ratio} Normal 0.9 - 1.6 [facility] Comment on above: Performed By: #### 2 43581 #### [facility],[address] [place] [address] 04498 ALK PHOS 69 U/L Normal 46 - 116 [facility] Comment on above: Performed By: #### 2 75315 #### [facility],[address] [place] [address] 45941 ALT [Catalytic activity/Vol] 26 U/L Normal 16 - 63 [facility] Comment on above: Performed By: #### 2 00366 #### [facility],[address] [place] [address] 75741 Anion gap [Moles/Vol] 12 mmol/L Normal 10 - 20 [facility] Comment on above: Performed By: #### 2 51610 #### [facility],[address] [place] [address] 84115 AST [Catalytic activity/Vol] 23 U/L Normal 13 - 39 [facility] Comment on above: Performed By: #### 2 09297 #### [facility],[address] [place] [address] 15562 B/C RATIO 18 ratio Normal 0 - 30 [facility] Comment on above: Performed By: #### 2 85867 #### [facility],[address] [place] [address] 61360 Bilirubin [Mass/Vol] 0.9 mg/dL Normal 0.2 - 1.0 [facility] Comment on above: Performed By: #### 2 63014 #### [facility],[address] [place], [place] [id number] Calcium [Mass/Vol] 9.0 mg/dL Normal 8.5 - 10.1 [facility] Comment on above: Performed By: #### 2 53695 #### [facility],[address] [place], [place] [id number] Chloride [Moles/Vol] 100 mmol/L Normal 98 - 107 [facility] Comment on above: Performed By: #### 2 17243 #### [facility],[address] [place], [place] [id number] CMP with eGFR Normal [facility] Comment on above: Result Comment: COMP REHENSIVE METABOLIC PANEL Performed By: #### 2 50242 #### [place] [address] CO2 [Moles/Vol] 31.1 mmol/L Normal 21.0 - 32.0 [facility] Comment on above: Performed By: #### 2 29626 #### [place] [id number] Creatinine [Mass/Vol] 0.77 mg/dL Normal 0.55 - 1.02 [facility] Comment on above: Performed By: #### 2 12256 #### [place] [id number] GFR/1.73 sq M.predicted among non-blacks MDRD (S/P/Bld) [Vol rate/Area] mL/min/{1.73_m2} Normal 60 - 999 [facility] Comment on above: Performed By: #### 2 61855 #### [facility],[address] [place] [address] Result Comment: ACCO RDING TO THE NATIONAL KIDNEY DISEASE EDUCATION PROGRAM(NKDE), A NORMAL eGFR IS A VALUE GREATER THAN OR EQUAL TO 60 ML/MIN/1.73 SQ METERS. CHRONIC KIDNEY DISEASE: <60mL/MIN/1.73 SQ METERS KIDNEY FAILURE: <15mL/MIN/1.73 SQ METERS THIS TEST SHOULD ONLY BE USED FOR PATIENTS 18 YEARS OF AGE AND OLDER. Globulin (S) [Mass/Vol] 3.0 g/dL Normal 1.5 - 3.8 [facility] Comment on above: Performed By: #### 2 73271 #### [address] [address] Glucose [Mass/Vol] 136 mg/dL High 74 - 106 [facility] Comment on above: Performed By: #### 2 85332 #### [address] [address] Potassium [Moles/Vol] 4.2 mmol/L Normal 3.5 - 5.1 [facility] Comment on above: Performed By: #### 2 95942 #### [address] [address] Protein [Mass/Vol] 6.8 g/dL Normal 6.4 - 8.2 [facility] Comment on above: Performed By: #### 2 79333 #### [address] [address] Sodium [Moles/Vol] 139 mmol/L Normal 136 - 145 [facility] Comment on above: Performed By: #### 2 70392 #### [facility],[address] [place] [address] 50669 Urea nitrogen [Mass/Vol] 14 mg/dL Normal 7 - 18 [facility] Comment on above: Performed By: #### 2 24111 #### [address] [address] LIPID PROFILEon 05-03-2024 Cholesterol [Mass/Vol] 160 mg/dL Normal 0 - 240 [facility] Comment on above: Performed By: #### 2 01940 #### [facility],[address] [place] [address] 67777 Cholesterol in HDL [Mass/Vol] 63 mg/dL High 40 - 60 [facility] Comment on above: Performed By: #### 2 16713 #### [facility],[address] [place] [address] 86027 Cholesterol in LDL [Mass/Vol] 61 mg/dL Normal 0 - 129 [facility] Comment on above: Performed By: #### 2 72672 #### [facility],[address] [place] [address] 53907 Cholesterol.total /Cholesterol in HDL [Mass ratio] 2.5 {ratio} Normal 0.0 - 5.0 [facility] Comment on above: Performed By: #### 2 14852 #### [facility],[address] [place] [address] 24331 Lipid [address] [facility] Comment on above: Result Comment: LIPI D PROFILE Performed By: #### 2 30494 #### [facility],[address] [place] [address] 51617 Triglyceride [Mass/Vol] 179 mg/dL High 0 - 150 [facility] Comment on above: Performed By: #### 2 17831 #### [facility],[address] [place] [address] ANGIOGRAM CHEST ABDOMEN P BRII WITH T/L RECONSon 11-08-2023 CT ANGIOGRAM CHEST ABDOMEN PELVIS WITH T/L RECONS EXAMINATION: CT SCAN OF THE CHEST, ABDOMEN AND PELVIS WITH CONTRAST WITH T/L RECONSTRUCTION 11/08/2023 HISTORY: Dx: R42 (Dizziness) Injury/Trauma or Illness?:Injury/Trau ma How long have you had these symptoms (acute/chronic)?:Acu te fall COMPARISON: None available. TECHNIQUE: Following the intravenous administration of 75 mL of Isovue-370, 3 mm axial images were performed through the chest, abdomen and pelvis during early arterial enhancement of the aorta. 2.5 mm axial delayed images performed through the abdomen and pelvis during portal venous phase of hepatic enhancement. 3 mm coronal and sagittal MPR reconstructions and 10 mm sagittal and coronal MIP CTA reconstructions preformed. 3D coronal reconstructions performed on a separate workstation for CT angiography. 2 mm axial reconstructive images performed through the thoracic and lumbar spine with 2 mm sagittal coronal MPR reconstructions. Dose reduction techniques were achieved by using automated exposure control and/or adjustment of mA and/or kV according to patient size and/or use of iterative reconstruction technique. FINDINGS: CTA AORTA: Mild atherosclerotic disease of the thoracic aortic arch and descending thoracic aorta. Mild narrowing of the proximal left subclavian artery secondary to mixed plaque. Moderate diffuse atherosclerotic disease of the abdominal aorta. Celiac trunk, SMA, SUSHMA and bilateral renal arteries are patent without significant stenosis. Mild-moderate diffuse atherosclerotic disease of bilateral iliac and bilateral common femoral arteries. No evidence of dissection or aneurysm. CT CHEST: No significant coronary arterial calcifications. No enlarged lymph nodes within the chest. Pulmonary bleb right lower lobe. Right lower lobe centrally calcified nodule consistent with a benign granuloma. The pleural spaces are clear. CT ABDOMEN: Cholelithiasis. No significant biliary ductal dilatation. The liver, spleen, pancreas, adrenal glands and the kidneys are unremarkable. No enlarged lymph nodes within the abdomen. CT PELVIS: Normal appendix. Diverticulosis without radiographic evidence of diverticulitis. Prior hysterectomy. No ascites or focal intraperitoneal fluid collections. No enlarged lymph nodes within the pelvis. Prior L4-L5 PLIF. CT THORACIC AND LUMBAR SPINE: Developmental interbody fusion T4-T5. Moderate multilevel degenerative disc disease of the mid and inferior thoracic spine. Mild multilevel degenerative disc disease throughout the lumbar spine. Prior L4-L5 PLIF without radiographic evidence of underlying complication. No evidence of fracture or spondylolisthesis. Mild S-shaped scoliotic curvature of the thoracolumbar spine. IMPRESSION: 1. No evidence of aortic dissection or aneurysm. Mild atherosclerotic disease of the thoracic aorta and moderate diffuse atherosclerotic disease of the abdominal aorta. Mild focal stenosis of the proximal left subclavian artery. 2. No acute cardiopulmonary disease. 3. Diverticulosis without radiographic evidence of diverticulitis. 4. Prior L4-L5 PLIF without radiographic evidence of underlying complication. Mild-moderate degenerative changes throughout the thoracic and the lumbar spine. No evidence of fracture or spondylolisthesis. [facility]/v Workstation ID: [id number] Dictated by: JAYDA RUIZ on WedNov 08, 2023 7:23:38 PM EST Transcribed by: BARBER TRUONG on WedNov 08, 2023 7:36:18 PM EST Finalized by: JAYDA RUIZ on WedNov 08, 2023 8:03:39 PM EST Normal [facility] Comment on above: Order Comment: Injur y/Trauma or Illness?:Injury/Trauma How long have you had these symptoms (acute/chronic)?:Acute Reason for exam?:head and neck injury s/p fall Type of Exam?:Initial Mechanism of injury?:head and neck injury s/p fall CT ANGIOGRAM NECKon 11-08-19 CT ANGIOGRAM NECK EXAMINATION: CT ANGIOGRAM NECK. 11/08/2023 CLINICAL HISTORY: fall, dizziness TECHNIQUE: Axial CT scans through the neck were obtained during IV administration of Isovue-370. Coronal and sagittal MIP images were obtained. Dose reduction techniques were achieved by using: automated exposure control and/or adjustment of mA and/or kV according to patient size and/or use of iterative reconstruction technique. In addition, 3D reconstruction images were generated on a separate independent [employer] workstation. NASCET criteria were used to assess the carotid stenosis. COMPARISON: None. FINDINGS: The visualized intracranial contents show no acute process. No abnormal soft tissue mass in the neck. The visualized lungs show no acute process.Osseous structures are intact. Solid anterior cervical fusion at C5-C6. The visualized aortic arch shows no aneurysm or dissection. The great vessels of the arch show no significant stenosis.Vertebral arteries show no dissection or significant stenosis. Common carotids and internal carotids show no significant stenosis or dissection. IMPRESSION: Common carotids and internal carotids show no significant stenosis or dissection. Vertebral arteries show no dissection or significant stenosis Workstation ID: [id number] Dictated by: GIOVANNI ALBERTO on WedNov 08, 2023 7:22:56 PM EST Transcribed by: GIOVANNI ALBERTO on WedNov 08, 2023 7:22:56 PM EST Finalized by: GIOVANNI ALBERTO on WedNov 08, 2023 7:22:56 PM EST Normal [facility] Comment on above: Order Comment: Injur y/Trauma or Illness?:Injury/Trauma How long have you had these symptoms (acute/chronic)?:Acute Reason for exam?:head and neck injury s/p fall Type of Exam?:Initial Mechanism of injury?:head and neck injury s/p fall CT CERVICAL SPINE WITHOUT CO NTRASTon 11-08-2023 CT CERVICAL SPINE WITHOUT CONTRAST EXAMINATION: CT CERVICAL SPINE WITHOUT CONTRAST HISTORY: ORDERING SYSTEM PROVIDED HISTORY: fall, TECHNOLOGIST PROVIDED HISTORY: Injury/Trauma Reason for exam: head and neck injury s/p fall Encounter Type: Initial Mechanism of injury: head and neck injury s/p fall ORDERING SYSTEM PROVIDED DIAGNOSIS CODES: R42 Dizziness W18.30XA Ground-level fall COMPARISON: None TECHNIQUE: CT cervical spine without IV contrast. Coronal and sagittal reformations were performed. Dose reduction techniques were achieved by using automated exposure control and/or adjustment of mA and/or kV according to patient size and/or use of iterative reconstruction technique. FINDINGS: No cervical fracture, or malalignment all prevertebral soft tissue swelling is demonstrated. The odontoid is intact. No facet joint dislocation. ACDF is noted at the C5-6 level. Hardware appears intact. Mild degenerative narrowing of the C4-5 disc. Moderate to advanced degenerative changes in bilateral facet joints. No spinal canal stenosis is seen. There are bilateral cervical ribs. Evaluation of soft tissue shows bilateral carotid calcification. Pulmonary apices are clear. IMPRESSION: Negative for cervical fracture. Chronic changes noted as above. Workstation ID: [id number] Dictated by: SALVADOR TOM on WedNov 08, 2023 6:41:08 PM EST Transcribed by: SALVADOR TOM on WedNov 08, 2023 6:41:08 PM EST Finalized by: SALVADOR TOM on WedNov 08, 2023 6:41:08 PM EST Normal [facility] Comment on above: Order Comment: Injur y/Trauma or Illness?:Injury/Trauma How long have you had these symptoms (acute/chronic)?:Acute Reason for exam?:head and neck injury s/p fall Type of Exam?:Initial Mechanism of injury?:head and neck injury s/p fall CT HEAD OR BRAIN WITHOUT CON TRASTon 11-08-2023 CT HEAD OR BRAIN WITHOUT CONTRAST EXAMINATION: CT HEAD OR BRAIN WITHOUT CONTRAST HISTORY: ORDERING SYSTEM PROVIDED HISTORY: fall, TECHNOLOGIST PROVIDED HISTORY: Injury/Trauma Reason for exam: head and neck injury s/p fall Encounter Type: Initial Mechanism of injury: head and neck injury s/p fall ORDERING SYSTEM PROVIDED DIAGNOSIS CODES: R42 Dizziness W18.30XA Ground-level fall COMPARISON: None TECHNIQUE: CT examination of the head without IV contrast. Dose reduction techniques were achieved by using automated exposure control and/or adjustment of mA and/or kV according to patient size and/or use of iterative reconstruction technique. FINDINGS: There is mild parenchymal volume loss and chronic microvascular disease. No mass, hemorrhage or acute infarct is seen. Normal de dios-white differentiation. No dense middle cerebral artery. No extra-axial fluid collection. Bony structures are unremarkable and visualized paranasal sinuses and mastoid air cells are well aerated. There is intracranial vascular calcification. No orbital abnormality is seen. IMPRESSION: Negative for skull fracture or acute intracranial abnormality. Workstation ID: [id number] Dictated by: SALVADOR TOM on WedNov 08, 2023 6:31:00 PM EST Transcribed by: SALVADOR TOM on WedNov 08, 2023 6:31:00 PM EST Finalized by: SALVADOR TOM on WedNov 08, 2023 6:31:00 PM EST Normal [facility] Comment on above: Order Comment: Injur y/Trauma or Illness?:Injury/Trauma How long have you had these symptoms (acute/chronic)?:Acute Reason for exam?:head and neck injury s/p fall Type of Exam?:Initial Mechanism of injury?:head and neck injury s/p fall MR CERVICAL SPINE WITHOUT CO NTRASTon 11-08-2023 MR CERVICAL SPINE WITHOUT CONTRAST EXAMINATION: MR CERVICAL SPINE WITHOUT CONTRAST 11/08/2023 HISTORY: Patient has ground level fall with upper extremity weakness and inability to move lower extremities. TECHNIQUE: Multiplanar, multisequence images through the cervical spine were obtained without contrast. COMPARISON: CT angiogram of the neck on 11/08/2023. FINDINGS: Degenerative pannus at the posterior aspect of the odontoid results in effacement of the anterior subarachnoid space without compression of the spinal cord. 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 A small posterior central disc protrusion at C2-C3. At C3-C4, a small posterior central disc protrusion and mild right facet arthropathy. At C4-C5, no abnormality. At C5-C6, anterior cervical fusion with magnetic susceptibility artifact from the anterior plate and screws. At C6-C7, no abnormality. At C7-T1, a small posterior central disc protrusion. No marrow edema. No ligamentous injury. The visualized posterior fossa contents and the cervical spinal cord have normal morphology and signal intensity. No signal aberration in the muscles. The prevertebral space shows no edema. Flow void in the vertebral arteries is present. IMPRESSION: No acute process in the cervical spine. No central spinal stenosis and no signal aberration in the spinal cord. Anterior cervical fusion at C5-C6. DDT/alt Workstation ID: [id number] Dictated by: GIOVANNI ALBERTO on WedNov 08, 2023 10:07:18 PM EST Transcribed by: FOZIA ROCK on WedNov 08, 2023 10:11:23 PM EST Finalized by: GIOVANNI ALBERTO on WedNov 09, 2023 12:38:21 AM EST Normal [facility] Comment on above: Order Comment: Injur y/Trauma or Illness?:Injury/Trauma How long have you had these symptoms (acute/chronic)?:Acute Reason for exam?:Rt. hand weakness lower extremity numbness s/p fall / syncopal episode today Type of Exam?:Initial Mechanism of injury?:fall MR LUMBAR SPINE WITHOUT CONT [facility] 11-08-2023 MR LUMBAR SPINE WITHOUT CONTRAST EXAMINATION: MR LUMBAR SPINE WITHOUT CONTRAST 11/08/2023 HISTORY: Patient fell with weakness in the upper extremities and inability to move lower extremities. TECHNIQUE: Multiplanar multi-sequence images through the lumbar spine were obtained without contrast administration. COMPARISON: None. FINDINGS: At T12-L1, a small broad-based posterior central disc protrusion. At L2-L3, slightly decreased disc height and mild posterior disc bulge. At L3-L4, decreased disc height and mild posterior disc bulge. At L4-L5, interbody fusion with placement of a disc spacer and posterolateral fusion with pedicle screws and connecting rods bilaterally. No central spinal stenosis or neural foraminal stenosis. At L5-S1, mild right facet arthropathy. No marrow edema or malignant neoplastic infiltration. A small benign hemangioma each in L1 and L3 vertebral bodies. The conus medullaris has normal morphology and signal intensity. No signal aberration in the muscles. The prevertebral space shows no edema. The visualized retroperitoneum shows no adenopathy. IMPRESSION: The conus medullaris has normal morphology and signal intensity. No central spinal stenosis or neural foraminal stenosis. At L4-L5, interbody fusion and posterolateral fusion. Workstation ID: [id number] Dictated by: GIOVANNI ALBERTO on WedNov 08, 2023 10:20:45 PM EST Transcribed by: GIOVANNI ALBERTO on WedNov 08, 2023 10:20:45 PM EST Finalized by: GIOVANNI ALBERTO on WedNov 08, 2023 10:20:45 PM EST [facility] Comment on above: Order Comment: Injur y/Trauma or Illness?:Injury/Trauma How long have you had these symptoms (acute/chronic)?:Acute Reason for exam?:Rt. hand weakness lower extremity numbness s/p fall / syncopal episode today. ( Prev. MRI 04/07/2023 ) Type of Exam?:Initial Mechanism of injury?:fall today MR THORACIC SPINE WITHOUT CO NTRASTon 11-08-2023 MR THORACIC SPINE WITHOUT CONTRAST EXAMINATION: MR THORACIC SPINE WITHOUT CONTRAST 11/08/2023 HISTORY: Patient fell with weakness in upper extremities and inability to move lower extremities. TECHNIQUE: Multiplanar, multisequence images through the thoracic spine were obtained without contrast administration. COMPARISON: None. FINDINGS: Normal alignment of the thoracic spine. Mild posterior discovertebral complex at T7-T8. No central spinal stenosis. 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 No marrow edema or malignant neoplastic infiltration. The spinal cord has normal morphology and signal intensity. No signal aberration in the muscles. The prevertebral space shows no edema. IMPRESSION: No central spinal stenosis and no signal aberration in the spinal cord. Workstation ID: [id number] Dictated by: GIOVANNI ALBERTO on WedNov 08, 2023 10:14:50 PM EST Transcribed by: GIOVANNI ALBERTO on WedNov 08, 2023 10:14:50 PM EST Finalized by: GIOVANNI ALBERTO on WedNov 08, 2023 10:14:50 PM EST [facility] Comment on above: Order Comment: Injur y/Trauma or Illness?:Injury/Trauma How long have you had these symptoms (acute/chronic)?:Acute Reason for exam?:Rt. hand weakness lower extremity numbness s/p fall / syncopal episode today Type of Exam?:Initial Mechanism of injury?:fall today XR CHEST PA/APon 11-08-2023 XR CHEST PA/AP EXAMINATION: XR CHEST PA/AP 11/08/2023 6:02 pm HISTORY: ORDERING SYSTEM PROVIDED HISTORY: fall, TECHNOLOGIST PROVIDED HISTORY: Injury/Trauma Reason for exam: level one trauma Cancer History: u Surgery, RadiationHistory: u Encounter Type: Initial Mechanism of injury: fall ORDERING SYSTEM PROVIDED DIAGNOSIS CODES: COMPARISON: PA chest from 11/08/2023. FINDINGS: Trachea is midline. Mediastinum is not widened. Heart size is unremarkable. The lungs are clear and well aerated. No effusion or nodule or pneumothorax is noted. Postsurgical changes are noted of the lower cervical spine. IMPRESSION: Nonacute portable chest. Workstation ID: [id number] Dictated by: JR SUERO on WedNov 08, 2023 6:37:34 PM EST Transcribed by: JR SUERO on WedNov 08, 2023 6:37:34 PM EST Finalized by: JR SUERO on WedNov 08, 2023 6:37:34 PM EST [facility] Comment on above: Order Comment: Injur y/Trauma or Illness?:Injury/Trauma How long have you had these symptoms (acute/chronic)?:Acute Reason for exam?:level one trauma History of cancer?:u Surgeries, chemotherapy, or radiation?:u Type of Exam?:Initial Mechanism of injury?:fall XR PELVIS 1 VIEW (STANDARD)o n 11-08-2023 XR PELVIS 1 VIEW (STANDARD) EXAMINATION: XR PELVIS 1 VIEW (STANDARD) 11/08/2023 6:03 pm HISTORY: ORDERING SYSTEM PROVIDED HISTORY: fall, TECHNOLOGIST PROVIDED HISTORY: Injury/Trauma Reason for exam: level one trauma Cancer History: u Surgery, RadiationHistory: u Encounter Type: Initial Mechanism of injury: fall ORDERING SYSTEM PROVIDED DIAGNOSIS CODES: COMPARISON: None FINDINGS: This is a limited examination due to patient body habitus and mild diffuse bony demineralization. No definite acute displaced fracture is seen. Joint alignment is normal. Joint spaces are preserved. Fusion device is seen projecting over the lower lumbar spine. IMPRESSION: No obvious acute displaced fracture or malalignment on this single supine view of the pelvis. Workstation ID: [id number] Dictated by: DEMETRIA BLACK on WedNov 08, 2023 6:51:41 PM EST Transcribed by: DEMETRIA BLACK on WedNov 08, 2023 6:51:41 PM EST Finalized by: DEMETRIA BLACK on WedNov 08, 2023 6:51:41 PM EST [facility] Comment on above: Order Comment: Injur y/Trauma or Illness?:Injury/Trauma How long have you had these symptoms (acute/chronic)?:Acute Reason for exam?:level one trauma History of cancer?:u Surgeries, chemotherapy, or radiation?:u Type of Exam?:Initial Mechanism of injury?:fall XR SHOULDER RIGHT 2+ VIEWS ( STANDARD)on 11-08-2023 XR SHOULDER RIGHT 2+ VIEWS (STANDARD) EXAMINATION: XR SHOULDER RIGHT 2+ VIEWS (STANDARD) 11/08/2023 7:07 pm HISTORY: ORDERING SYSTEM PROVIDED HISTORY: fall, TECHNOLOGIST PROVIDED HISTORY: Injury/Trauma Reason for exam: right shoulder pain and limited rom s/p trauma fall Cancer History: u Surgery, RadiationHistory: u Encounter Type: Initial Mechanism of injury: . ORDERING SYSTEM PROVIDED DIAGNOSIS CODES: R42 Dizziness W18.30XA Ground-level fall COMPARISON: None FINDINGS: 3 films were done of the right shoulder. Postsurgical changes are partially noted of the lower cervical spine. The clavicle shows no fracture. Mild degenerative changes at the glenohumeral joint and moderate to prominent degenerative changes are noted at the AC joint. Bone density is mildly decreased. No bony lesions or fractures or dislocations noted. The soft tissues are unremarkable. IMPRESSION: 1. No dislocation or obvious fracture of the right shoulder girdle. 2. Osteopenic and degenerative changes noted. Workstation ID: [id number] Dictated by: JR SUERO on WedNov 08, 2023 8:02:29 PM EST Transcribed by: JR SUERO on WedNov 08, 2023 8:02:29 PM EST Finalized by: JR SUERO on WedNov 08, 2023 8:02:29 PM EST Normal [facility] Comment on above: Order Comment: Injur y/Trauma or Illness?:Injury/Trauma How long have you had these symptoms (acute/chronic)?:Acute Reason for exam?:right shoulder pain and limited rom s/p trauma fall History of cancer?:u Surgeries, chemotherapy, or radiation?:u Type of Exam?:Initial Mechanism of injury?:. Basic metabolic 2000 panelon 08-25-2023 Anion gap [Moles/Vol] 13 mmol/L Normal -20 [facility] Comment on above: Performed By: #### 2 4321-2 #### ESCOBAR SAMY ([id number]) [facility] ([facility]) [address] [place] [address] Calcium [Mass/Vol] 8.8 mg/dL Normal 8.6-10.3 [facility] Comment on above: Performed By: #### 2 4321-2 #### LUZ PABLO ([id number]) [facility] ([facility]) [address] [place] [address]51 Chloride [Moles/Vol] 96 mmol/L Low 98-107 [facility] Comment on above: Performed By: #### 2 4321-2 #### LUZ PABLO ([id number]) [facility] ([facility]) [address] [place] [address] 92046 CO2 [Moles/Vol] 29 mmol/L Normal 21-32 [facility] Comment on above: Performed By: #### 2 4321-2 #### LUZ PABLO ([id number]) [facility] ([facility]) [address] [place] [address] 02767 Creatinine [Mass/Vol] 0.67 mg/dL Normal 0.50-1.05 [facility] Comment on above: Performed By: #### 2 4321-2 #### LUZ PABLO ([id number]) [facility] ([facility]) [address] [place] [address] 01867 GFR/1.73 sq M.predicted MDRD (S/P/Bld) [Vol rate/Area] mL/min/{1.73_m2} Normal >60 [facility] Comment on above: Result Comment: Calc ulations of estimated GFR are performed using the 2020 CKD-EPI Study Refit equation without the race variable for the IDMS-Traceable creatinine methods. https://jasn.asnjournals.org/content/early/ASN.4409373614 Performed By: #### 2 4321-2 #### LUZ PABLO ([id number]) [facility] ([facility]) [address] [place] [address] 82823 Glucose [Mass/Vol] 159 mg/dL High 74-99 [facility] Comment on above: Performed By: #### 2 4321-2 #### LUZ PABLO ([id number]) [facility] ([facility]) [address] [place] [address] Potassium [Moles/Vol] 3.7 mmol/L Normal 3.5-5.3 [facility] Comment on above: Performed By: #### 2 4321-2 #### LUZ PABLO ([id number]) [facility] ([facility]) [address] [place] [address] Sodium [Moles/Vol] 134 mmol/L Low 136-145 [facility] Comment on above: Performed By: #### 2 4321-2 #### LUZ PABLO ([id number]) [facility] ([facility]) [address] [place] [address] 65343 Urea nitrogen [Mass/Vol] 10 mg/dL Normal 6-23 [facility] Comment on above: Performed By: #### 2 4321-2 #### LUZ PABLO ([id number]) [facility] ([facility]) [address] [place] [address] 44539 Basic metabolic 2000 panelon 08-10-2023 Anion gap [Moles/Vol] 14 mmol/L Normal 10-20 [facility] Comment on above: Performed By: #### 2 1-2 #### LUZ PABLO ([id number]) [facility] ([facility]) [address] [place] [address] 77668 Calcium [Mass/Vol] 9.1 mg/dL Normal 8.6-10.3 [facility] Comment on above: Performed By: #### 2 4321-2 #### LUZ PABLO ([id number]) [facility] ([facility]) [address] [place] [address] 05380 Chloride [Moles/Vol] 94 mmol/L Low 98-107 [facility] Comment on above: Performed By: #### 2 1-2 #### LUZ PABLO ([id number]) [facility] ([facility]) [address] [place] [address] 91569 CO2 [Moles/Vol] 29 mmol/L Normal 21-32 [facility] Comment on above: Performed By: #### 2 4321-2 #### LUZ PABLO ([id number]) [facility] ([facility]) [address] [place] [address] Creatinine [Mass/Vol] 0.55 mg/dL Normal 0.50-1.05 [facility] Comment on above: Performed By: #### 2 4321-2 #### LUZ PABLO ([id number]) [facility] ([facility]) [facility] [place] [address] GFR/1.73 sq M.predicted MDRD (S/P/Bld) [Vol rate/Area] mL/min/{1.73_m2} Normal >60 [facility] Comment on above: Result Comment: Calc ulations of estimated GFR are performed using the 2020 CKD-EPI Study Refit equation without the race variable for the IDMS-Traceable creatinine methods. https://jasn.asnjournals.org/content/early//ASN.8621299512 Performed By: #### 2 4321-2 #### LUZ PABLO ([id number]) [facility] ([facility]) [address] [place] [address] 56410 Glucose [Mass/Vol] 189 mg/dL High 74-99 [facility] Comment on above: Performed By: #### 2 4321-2 #### LUZ PABLO ([id number]) [facility] ([facility]) [facility] [place] [address] Potassium [Moles/Vol] 4.3 mmol/L Normal 3.5-5.3 [facility] Comment on above: Performed By: #### 2 4321-2 #### LUZ PABLO ([id number]) [facility] ([facility]) [facility] [place] [address] Sodium [Moles/Vol] 133 mmol/L Low 136-145 [facility] Comment on above: Performed By: #### 2 4321-2 #### LUZ PABLO ([id number]) [facility] ([facility]) [facility] [place] [address] Urea nitrogen [Mass/Vol] 13 mg/dL Normal 6-23 [facility] Comment on above: Performed By: #### 2 4321-2 #### LUZ PABLO ([id number]) [facility] ([facility]) [address] [place] [address] 56379 CBC W Auto Differential pane l (Bld)on 06-25-2023 Basophils (Bld) [#/Vol] 0.07 x10*3/uL Normal 0.00-0.10 [facility] Comment on above: Performed By: #### 5 7021-8 #### LUZ PABLO ([id number]) [facility] ([facility]) [address] [place] [address] 43269 Basophils/100 WBC (Bld) 1.1 % Normal 0.0-2.0 [facility] Comment on above: Performed By: #### 5 7021-8 #### LUZ PABLO ([id number]) [facility] ([facility]) [address] [place] [address] 20271 Eosinophils (Bld) [#/Vol] 0.13 x10*3/uL Normal 0.00-0.70 [facility] Comment on above: Performed By: #### 5 7021-8 #### LUZ PABLO ([id number]) [facility] ([facility]) [address] [place] [address] 66533 Eosinophils/100 WBC (Bld) 2.1 % Normal 0.0-6.0 [facility] Comment on above: Performed By: #### 5 7021-8 #### LUZ PABLO ([id number]) [facility] ([facility]) [address] [place] [address] 73907 Erythrocyte distribution width (RBC) [Ratio] 12.1 % Normal 11.5-14.5 [facility] Comment on above: Performed By: #### 5 7021-8 #### LUZ PABLO ([id number]) [facility] ([facility]) [address] [place] [address] 89388 Hematocrit (Bld) [Volume fraction] 38.0 % Normal 36.0-46.0 [facility] Comment on above: Performed By: #### 5 7021-8 #### LUZ PABLO ([id number]) [facility] ([facility]) [address] [place] [address] 87047 Hemoglobin (Bld) [Mass/Vol] 12.9 g/dL Normal 12.0-16.0 [facility] Comment on above: Performed By: #### 5 7021-8 #### LUZ PABLO ([id number]) [facility] ([facility]) [address] [place] [address] 24715 Immature granulocytes (Bld) [#/Vol] 0.01 x10*3/uL Normal 0.00-0.70 [facility] Comment on above: Performed By: #### 5 7021-8 #### LUZ PABLO ([id number]) [facility] ([facility]) [address] [place] [address] 83518 Immature granulocytes/100 WBC (Bld) 0.2 % Normal 0.0-0.9 [facility] Comment on above: Result Comment: Brina ture Granulocyte Count (IG) includes promyelocytes, myelocytes and metamyelocytes but does not include bands. Percent differential counts (%) should be interpreted in the context of the absolute cell counts (cells/UL). Performed By: #### 5 7021-8 #### LUZ PABLO ([id number]) [facility] ([facility]) [address] [place] [address] 56337 Lymphocytes (Bld) [#/Vol] 2.79 x10*3/uL Normal 1.20-4.80 [facility] Comment on above: Performed By: #### 5 7021-8 #### LUZ PABLO ([id number]) [facility] ([facility]) [address] [place] [address] 93345 Lymphocytes/100 WBC (Bld) 45.7 % Normal 13.0-44.0 [facility] Comment on above: Performed By: #### 5 7021-8 #### LUZ PABLO ([id number]) [facility] ([facility]) [address] [place] [address] 85500 MCH (RBC) [Entitic mass] 29.1 pg Normal 26.0-34.0 [facility] Comment on above: Performed By: #### 5 7021-8 #### LUZ PABLO ([id number]) [facility] ([facility]) [address] [place] [address] 61290 MCHC (RBC) [Mass/Vol] 33.9 g/dL Normal 32.0-36.0 [facility] Comment on above: Performed By: #### 5 7021-8 #### LUZ PABLO ([id number]) [facility] ([facility]) [address] [place] [address] 08709 MCV (RBC) [Entitic vol] 86 fL Normal 80-100 [facility] Comment on above: Performed By: #### 5 7021-8 #### LUZ PABLO ([id number]) [facility] ([facility]) [address] [place] [address] 71554 Monocytes (Bld) [#/Vol] 0.55 x10*3/uL Normal 0.10-1.00 [facility] Comment on above: Performed By: #### 5 7021-8 #### LUZ PABLO ([id number]) [facility] ([facility]) [address] [place] [address] 53183 Monocytes/100 WBC (Bld) 9.0 % Normal 2.0-10.0 [facility] Comment on above: Performed By: #### 5 7021-8 #### LUZ PABLO ([id number]) [facility] ([facility]) [address] [place] [address] 70326 Neutrophils (Bld) [#/Vol] 2.55 x10*3/uL Normal 1.20-7.70 [facility] Comment on above: Result Comment: Perc ent differential counts (%) should be interpreted in the context of the absolute cell counts (cells/uL). Performed By: #### 5 7021-8 #### LUZ PABLO ([id number]) [facility] ([facility]) [address] [place] [address] 88108 Neutrophils/100 WBC (Bld) 41.9 % Normal 40.0-80.0 [facility] Comment on above: Performed By: #### 5 7021-8 #### LUZ PABLO ([id number]) [facility] ([facility]) [address] [place] [address] 35503 Nucleated RBC/100 WBC (Bld) [Ratio] 0.0 /100 WBCs Normal 0.0-0.0 [facility] Comment on above: Performed By: #### 5 7021-8 #### LUZ PABLO ([id number]) [facility] ([facility]) [address] [place] [address] 44079 Platelet mean volume (Bld) [Entitic vol] 9.5 fL Normal 7.5-11.5 [facility] Comment on above: Performed By: #### 5 7021-8 #### LUZ PABLO ([id number]) [facility] ([facility]) [address] [place] [address] 42812 Platelets (Bld) [#/Vol] 278 x10*3/uL Normal 150-450 [facility] Comment on above: Performed By: #### 5 7021-8 #### LUZ PABLO ([id number]) [facility] ([facility]) [address] [place] [address] 17926 RBC (Bld) [#/Vol] 4.44 x10*6/uL Normal 4.00-5.20 [facility] Comment on above: Performed By: #### 5 7021-8 #### LUZ PABLO ([id number]) [facility] ([facility]) [address] [place] [address] 51314 WBC (Bld) [#/Vol] 6.1 x10*3/uL Normal 4.4-11.3 [facility] Comment on above: Performed By: #### 5 7021-8 #### LUZ PABLO ([id number]) [facility] ([facility]) [address] [place] [address] 07456 ALBUMIN/CREAT RATIO RND URon 04-15-2023 Albumin DL <= 20 mg/L (U) [Mass/Vol] mg/dL Normal [facility] Comment on above: Order Comment: Speci men Type: URINE SPECIMEN Ordering Facility: [facility] Address: [address] [place] [address] Performed By: #### U ACR #### [facility] CLIA [id number] [address] [place] [address] [place] Albumin/Creatinin e (U) [Mass ratio] <12 Normal <30 [facility] Comment on above: Order Comment: Speci men Type: URINE SPECIMEN Ordering Facility: [facility] Address: [address] [place] [address] Result Comment: Adul t Male and Female Nephrotic Criteria: <30 mg/g is considered normal to mildly increased 30-300 mg/g is considered moderately increased >300 mg/g is considered severely increased KDIGO. (2013). KDIGO 2012 Clinical Practice Guideline for the Evaluation and Management of Chronic Kidney Disease. Official Journal of the International Society of Nephrology, 3(1), 1-150. Performed By: #### U ACR #### [facility] CLIA [id number] [address] [place] [address] [place] Creatinine (U) [Mass/Vol] 101.3 mg/dL Normal 20.0-300.0 [facility] Comment on above: Order Comment: Karlasaray torres Type: URINE SPECIMEN Ordering Facility: [facility] Address: [address] [place] [address] Performed By: #### U ACR #### [facility] CLIA [id number] [address] [place] [address] [place] MR LUMBAR SPINE WITH AND WIT HOUT CONTRASTon 03-18-2023 MR LUMBAR SPINE WITH AND WITHOUT CONTRAST EXAMINATION: MR LUMBAR SPINE WITH AND WITHOUT CONTRAST HISTORY: ORDERING SYSTEM PROVIDED HISTORY: Chronic low back pain without sciatica, unspecified back pain laterality, TECHNOLOGIST PROVIDED HISTORY: Illness/Other Reason for exam: worsening low back pain down both legs worse on Rt. side X 2 years hx. of Lumbar surdery 2019 Encounter Type: Subsequent/Follow-up Additional signs and symptoms: na ORDERING SYSTEM PROVIDED DIAGNOSIS CODES: M54.50 Chronic low back pain without sciatica, unspecified back pain laterality G89.29 Chronic low back pain without sciatica, unspecified back pain laterality K62.89 Chronic idiopathic anal pain G89.29 Chronic idiopathic anal pain M54.16 Lumbar radiculopathy COMPARISON: None. TECHNIQUE: Multiplanar, multisequence MR imaging of the lumbar spine was performed prior to and following the administration of intravenous contrast. CONTRAST: GADOTERATE MEGLUMINE 0.5 MMOL/ML (376.9 MG/ML) INTRAVENOUS SOLUTION - 16 mL, FINDINGS: The last fully formed disc space is presumed to represent L5/S1. Posterior foelia and pedicle screw fixation hardware is noted at L4/L5 with interbody disc space device. The lumbar spine is in anatomic alignment. There is preservation of the vertebral body heights and disc spaces. Bone marrow signal is within normal limits. No acute fracture or dislocation. Mild Modic type I degenerative changes are noted at L3/L4. The conus terminates at T12/L1 and is unremarkable in contour and signal. No paraspinal mass or fluid collection. The visualized abdominal aorta is unremarkable in contour. Sacroiliac joint spaces are unremarkable. T11/T12: Negative. T12/L1: Small midline disc extrusion causing slight effacement of the ventral thecal sac. L1/L2: Negative. L2/L3: Disc space narrowing and disc bulging with slight effacement of the ventral thecal sac. L3/L4: Disc space narrowing, disc bulging and facet arthropathy with small right foraminal disc extrusion causing slight effacement of the ventral thecal sac and mild encroachment upon the right neural foramen. L4/L5: Negative. L5/S1: Negative. IMPRESSION: 1. Posterior fixation and interbody fusion at L4/L5. No acute osseous abnormality. 2. Mild Modic type I degenerative changes at L3/L4. 3. At the L3/L4 level, there is disc space narrowing, disc bulging and facet arthropathy with small right foraminal disc extrusion causing slight effacement of the ventral thecal sac and mild encroachment upon the right neural foramen. 4. Small midline disc extrusion at T12/L1 causing minimal effacement of the ventral thecal sac. No significant lumbar central canal stenosis. [facility] [place] Workstation ID: [id number] Dictated by: SALVADOR PAYNE on WedMar 18, 2023 11:36:32 AM EDT Transcribed by: RONIT ERAZO on WedMar 18, 2023 11:42:28 AM EDT Finalized by: SALVADOR PAYNE on WedMar 18, 2023 5:18:15 PM EDT [facility] Comment on above: Order Comment: PT/FA X Injury/Trauma or Illness?:Illness/Other How long have you had these symptoms (acute/chronic)?:Chronic Reason for exam?:worsening low back pain down both legs worse on Rt. side X 2 years hx. of Lumbar surdery 2019 Type of Exam?:Subsequent/Follow-up Additional signs and symptoms?:na MR BRAIN WITHOUT CONTRASTon 03-03-2023 MR BRAIN WITHOUT CONTRAST EXAMINATION: MR BRAIN WITHOUT CONTRAST HISTORY: ORDERING SYSTEM PROVIDED HISTORY: Chronic nonintractable headache, unspecified headache type, TECHNOLOGIST PROVIDED HISTORY: Illness/Other Reason for exam: Headached for entire life. Constant low grade headache, more severe posterior headachen x 2 years Encounter Type: Subsequent/Follow-up Additional signs and symptoms: No Hx of CA; questionable prior CVA (Right leg weakness) ORDERING SYSTEM PROVIDED DIAGNOSIS CODES: R51.9 Chronic nonintractable headache, unspecified headache type G89.29 Chronic nonintractable headache, unspecified headache type COMPARISON: None. TECHNIQUE: Sagittal T1, axial T2, FLAIR, diffusion, T2 gradient images obtained. FINDINGS: Paranasal sinuses clear. Mastoid air cells clear. Nasopharynx normal. 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 Extracranial soft tissue structures are unremarkable. Ventricles are normal in size. No hydrocephalus. No mass effect. No shift of midline. No extraaxial fluid collections. Mild chronic microvascular ischemic changes in the cerebral white matter. No diffusion restriction. No evidence of acute ischemic infarction. T2 gradient images show no hemorrhagic lesions. No masses. IMPRESSION: 1. No acute infarction. Mild chronic microvascular ischemic changes. 2. No masses. No acute findings. [facility]/ads Workstation ID: [id number] Dictated by: ADITHYA SANTIAGO on WedMar 03, 2023 3:49:04 PM EDT Transcribed by: LI SHIPLEY on WedMar 03, 2023 4:12:55 PM EDT Finalized by: ADITHYA SANTIAGO on WedMar 03, 2023 5:25:01 PM EDT [facility] Comment on above: Order Comment: PT/FA X Injury/Trauma or Illness?:Illness/Other How long have you had these symptoms (acute/chronic)?:Chronic Reason for exam?:Headached for entire life. Constant low grade headache, more severe posterior headachen x 2 years Type of Exam?:Subsequent/Follow-up Additional signs and symptoms?:No Hx of CA; questionable prior CVA (Right leg weakness) CKon 01-25-2023 CK [Catalytic activity/Vol] 304 U/L High 30-184 [facility] Comment on above: Performed By: #### C KB #### [facility] (DEFAULT) [address] [place] [address] TSH W/FT4 REFLEXon 3 TSH 1.673 uIU/mL Normal 0.550-4.780 [facility] Comment on above: Performed By: #### T SHQR #### [facility] (DEFAULT) [address] [address] VITAMIN D (25-HYDROXY,TOTAL) on 01-25-2023 25-OH Vitamin D Total 53.1 ng/mL Normal 30.0-100.0 [facility] Comment on above: Order Comment: Vitam in D values have been shown to be falsely decreased in lipemic samples and should be interpreted with caution. Result Comment: <10 Deficiency 10-29 Insufficiency 30-100 Optimal Level >100 Possible Toxicity Performed By: #### D 25OH #### [facility] (DEFAULT) [address] [address] ALBUMIN/CREAT RATIO RND URon 05-29-2022 Albumin DL <= 20 mg/L (U) [Mass/Vol] mg/dL Normal [facility] Comment on above: Order Comment: Speci men Type: URINE SPECIMEN Ordering Facility: [facility] Address: [address] [place] [address] Performed By: #### U ACR #### [facility] CLIA [id number] [address] [address] [place] Albumin/Creatinin e (U) [Mass ratio] <8 Normal <30 [facility] Comment on above: Order Comment: Speci men Type: URINE SPECIMEN Ordering Facility: [facility] Address: [facility] [place] [address] Result Comment: Adul t Male and Female Nephrotic Criteria: <30 mg/g is considered normal to mildly increased 30-300 mg/g is considered moderately increased >300 mg/g is considered severely increased KDIGO. (2013). KDIGO 2012 Clinical Practice Guideline for the Evaluation and Management of Chronic Kidney Disease. Official Journal of the International Society of Nephrology, 3(1), 1-150. Performed By: #### U ACR #### [facility] CLIA [id number] [address] [place] [address] [place] Creatinine (U) [Mass/Vol] 150.6 mg/dL Normal 20.0-300.0 [facility] Comment on above: Order Comment: Speci men Type: URINE SPECIMEN Ordering Facility: [facility] Address: [facility] [place] [address] Performed By: #### U ACR #### [facility] CLIA [id number] [address] [place] [address] STATES [facility] Clinical Summary: Shane ericka 12-23-[address] [facility] OP Visit Invalid Interpretation Code [facility] Work Phone: [facility] 75 OP Visit Invalid Interpretation Code [facility] Work Phone: Office Visit: Follow-up by tim aguayo Rm: PT 1on 12-17-2021 xray history of the lumbar spine on 02/24/2021 at [facility] Invalid Interpretation Code [facility] Work Phone: NEGATED: Highlighted rowxray history of the lumbar spine on 02/24/2021 at [facility] Invalid Interpretation Code [facility] Work Phone: [facility]-24-[facility]21 [facility] OP Visit Invalid Interpretation Code [facility] Work Phone: Office Visit: Postop - subse quent visit, Rm: 19on 10-24-2021 NEGATED: Highlighted rowxray history of the cervical spine on 02/24/2021 at [facility], of the lumbar spine on 02/24/2021 at [facility] Invalid Interpretation Code [facility] Work Phone: Hemoglobin A1con 07-23-2020 HbA1c (Bld) [Mass fraction] 5.8 % High 4.3-5.6 [facility] Comment on above: Performed By: #### H MICHAEL #### [facility] [address] [address] HbA1c (Bld) [Mass fraction] 120 mg/dL Normal [facility] Comment on above: Performed By: #### H BA1C #### [facility] [address] [address] Hemoglobin A1con 03-24-2020 HbA1c (Bld) [Mass fraction] 5.5 % Normal 4.3-5.6 [facility] Comment on above: Performed By: #### H BA1C #### [facility] [address] [address] HbA1c (Bld) [Mass fraction] 111 mg/dL Normal [facility] Comment on above: Performed By: #### H JERONIMO1C #### [facility] Routine Lab [address] [address] REFLEXIVE URINE CULTUREon REFLEXIVE URINE CULTURE NO CULTURE INDICATED Normal [facility] Comment on above: Performed By: #### 3 020 #### [facility] , [address] [place] [id number] [employer] Supervisor: Joshua Nunes MD URINALYSIS, COMPLETE W/REFLE X TO CULTUREon 01-21-2020 Appearance (U) CLEAR Normal CLEAR [facility] Comment on above: Performed By: #### 3 020 #### [facility] [address] [place] , [address] [place], [place] [id number] [employer] Supervisor: Joshua Nunes MD Bacteria LM.HPF (Urine sed) [#/Area] NONE SEEN Normal NONE SEEN [facility] Comment on above: Performed By: #### 3 020 #### [facility] [address] [place] , [address] [place] [address] [employer] Supervisor: Joshua Nunes MD Bilirubin [Mass/Vol] Negative Normal NEGATIVE [facility] Comment on above: Performed By: #### 3 020 #### [facility] [address] [place] , [address] [place] [address] [employer] Supervisor: Joshua Nunes MD Color (U) YELLOW Normal YELLOW [facility] Comment on above: Performed By: #### 3 020 #### [facility] [address] [place] , [address] [place] [address] [employer] Supervisor: Joshua Nunes MD Epithelial cells.squamous LM.HPF (Urine sed) [#/Area] 0-5 Normal < OR = 5 [facility] Comment on above: Performed By: #### 3 020 #### [facility] [address] [place] , [address] [place] [address] [employer] Supervisor: Joshua Nunes MD Glucose [Mass/Vol] Negative Normal NEGATIVE [facility] Comment on above: Performed By: #### 3 020 #### [facility] , [address] [place] [address] [employer] Supervisor: Joshua Nunes MD HYALINE CAST NONE SEEN Normal NONE SEEN [facility] Comment on above: Performed By: #### 3 020 #### [facility] [address] [place] , [address] [place], [place] [id number] [employer] Supervisor: Joshua Nunes MD Ketones Ql (U) Negative Normal NEGATIVE [facility] Comment on above: Performed By: #### 3 020 #### [facility] [address] [place] , [address] [place], [place] [id number] [employer] Supervisor: Joshua Nunes MD Leukocyte esterase Test strip Ql (U) Negative Normal NEGATIVE [facility] Comment on above: Performed By: #### 3 020 #### [facility]-[address], [address] [place] [address] [employer] Supervisor: Joshua Nunes MD Nitrite Ql (U) Negative Normal NEGATIVE [facility] Comment on above: Performed By: #### 3 020 #### [facility]-[address], [address] [place] [address] [employer] Supervisor: Joshua Nunes MD OCCULT BLOOD Negative Normal NEGATIVE [facility] Comment on above: Performed By: #### 3 020 #### [facility]-[address], [address] [place] [address] [employer]em[employer] Supervisor: Joshua Nunes MD pH (Bld) 6.5 Normal 5.0-8.0 [facility] Comment on above: Performed By: #### 3 020 #### [facility] [address] [employer] Supervisor: Joshua Nunes MD Protein (U) [Mass/Vol] Negative Normal NEGATIVE [facility] Comment on above: Performed By: #### 3 020 #### [facility] [address] [employer] Supervisor: Joshua Nunes MD RBC (U) [#/Vol] NONE SEEN Normal < OR = 2 [facility] Comment on above: Performed By: #### 3 020 #### [facility] [address] [employer] Supervisor: Joshua Nunes MD Specific gravity (U) [Rel density] 1.020 Normal 1.001-1.035 [facility] Comment on above: Performed By: #### 3 020 #### [facility] [address] [employer] Supervisor: Joshua Nunes MD WBC (Bld) [#/Vol] NONE SEEN Normal < OR = 5 [facility] Comment on above: Performed By: #### 3 020 #### [facility] [address] [employer] Supervisor: Joshua Nunes MD Vital Signs Date Time Vital Sign Value Performing Clinician Facility NEGATED: Highlighted [id number] 10:30-0400 Body height 160.02 cm Leeanna Sylvia AT [facility] Work Phone: NEGATED: Highlighted [id number] 10:30-0400 Body height 160 cm Leeanna Sylvia AT [facility] Work Phone: NEGATED: Highlighted [id number] 10:30-0400 Body mass index (BMI) [Ratio] 32 kg/m2 Leeanna Sylvia AT [facility] Work Phone: NEGATED: Highlighted [id number] 10:30-0400 Body weight 81.65 kg Leeanna Sylvia AT [facility] Work Phone: NEGATED: Highlighted [id number] 10:30-0400 Body weight 82 kg Leeanna Sylvia AT [facility] Work Phone: NEGATED: Highlighted [id number] 10:39-0400 Body height 160.02 cm Remedios Bougher BOOM STICK MAN [facility] Work Phone: NEGATED: Highlighted [id number] 10:39-0400 Body height 160 cm Remedios Bougher BOOM STICK MAN [facility] Work Phone: NEGATED: Highlighted [id number] 10:39-0400 Body mass index (BMI) [Ratio] 32 kg/m2 Remedios Bougher BOOM STICK MAN [facility] Work Phone: NEGATED: Highlighted [id number] 10:39-0400 Body weight 81.65 kg Remedios Bougher BOOM STICK MAN [facility] Work Phone: NEGATED: Highlighted [id number] 10:39-0400 Body weight 82 kg Remedios Bougher BOOM STICK MAN [facility] [place] [facility] Work Phone: NEGATED: Highlighted [id number] 12:0500 Body height 160.02 cm Lupe Lorence AT [facility] Work Phone: NEGATED: Highlighted [id number] 12:19-0500 Body height 160 cm Lupe Lorence AT [facility] Work Phone: NEGATED: Highlighted [id number] 12:19-0500 Body mass index (BMI) [Ratio] 32 kg/m2 Lupe Lorence AT [facility] Work Phone: NEGATED: Highlighted [id number] 12:050 Body weight 81.65 kg Lupe Lorence AT [facility] Work Phone: NEGATED: Highlighted [id number] 12:0500 Body weight 82 kg Lupe Lorence AT [facility] Work Phone: Encounters Encounter Date Encounter Type Care Provider Facility Start: 06-08-2024 End: 06-08-2024 Emergency department patient visit LUCINDA LEONARD [facility] Start: 05-09-2024 End: 05-09-2024 ambulatory [facility] Start: 05-03-2024 End: 05-03-2024 ambulatory [facility] Start: 04-25-2024 ambulatory [facility] Start: 11-08-2023 End: 11-09-2023 Emergency department patient visit [facility] Start: 03-18-2023 End: 03-19-[address] [facility] Start: 03-03-2023 End: 03-04-[address] [facility] Start: 02-19-2023 ambulatory [facility] Facility: [facility] Start: 02-18-2023 ambulatory [facility] ty:[facility] Start: 01-25-2023 ambulatory [facility] Facility: [facility] Start: 01-25-2023 ambulatory [facility] Facility: [facility] Start: 12-07-2022 ambulatory [facility] Facility: [facility] Start: 12-06-2022 ambulatory [facility] Facility: [facility] Start: 10-24-2021 End: 10-24-2021 Pt evaluation Sandra Salcedo MD Work Phone: [facility] Work Phone: Procedures Date Procedure Procedure Detail Performing Clinician Start: 12-23-2021 End: 12-23-2021 BP scrn no perf at interval Kam Ruano PA-C Work Phone: Start: 12-23-2021 End: 12-23-2021 Calc BMI abv up basilio f/u Kam Ruano PA-C Work Phone: Start: 12-23-2021 End: 12-23-2021 Current tobacco non-user cad cap copd pv dm Kam Ruano PA-C Work Phone: Start: 12-23-2021 End: 12-23-2021 Docrev cur meds by diane Ruano PA-C Work Phone: Start: 12-23-2021 End: 12-23-2021 Pain doc pos and plan Kam Wang Work Phone: Start: 12-23-2021 End: 12-23-2021 Patient encounter procedure Kam Ruano PA-C Work Phone: Start: 12-23-2021 End: 12-23-2021 Radex hip unilateral with pelvis 2-3 views Kam Ruano PA-C Work Phone: Start: 12-17-2021 End: 12-17-2021 Documentation of current medications Leeanna Ward AT Start: 12-17-2021 End: 12-17-2021 BP scrn no perf at interval Sandra Salcedo MD Work Phone: Start: 12-17-2021 End: 12-17-2021 Calc BMI abv up basilio f/u Sandra Sacledo MD Work Phone: Start: 12-17-2021 End: 12-17-2021 Current tobacco non-user cad cap copd pv dm Sandra Salcedo MD Work Phone: Start: 12-17-2021 End: 12-17-2021 Docrev cur meds by diane Salcedo MD Work Phone: Start: 12-17-2021 End: 12-17-2021 No doc of pain Sandra Salcedo MD Work Phone: Start: 12-17-2021 End: 12-17-2021 Patient encounter procedure Sandra Salcedo MD Work Phone: Start: 10-24-2021 End: 10-24-2021 BP scrn no perf at interval Sandra Salcedo MD Work Phone: Start: 10-24-2021 End: 10-24-2021 Calc BMI abv up basilio f/u Sandra Salcedo MD Work Phone: Start: 10-24-2021 End: 10-24-2021 Current tobacco non-user cad cap copd pv dm Sandra Salcedo MD Work Phone: Start: 10-24-2021 End: 10-24-2021 Docrev cur meds by diane Salcedo MD Work Phone: Start: 10-24-2021 End: 10-24-2021 No doc of pain Sandra Salcedo MD Work Phone: Start: 10-24-2021 End: 10-24-2021 Patient encounter procedure Sandra Salcedo MD Work Phone: NEGATED: Highlighted rowStart: 12-23-2021 End: 12-23-2021 Documentation of current medications Leeanna OVERTON NEGATED: Highlighted rowStart: 12-17-2021 End: 12-17-2021 Documentation of current medications Remedios Ingram LPN NEGATED: Highlighted rowStart: 10-24-2021 End: 10-24-2021 Documentation of current medications Lupe Campos AT Plan of Treatment Date Care Activity Detail Author Start: 01-02-2022 End: 01-02-2022 Patient encounter procedure Appointment [facility] Work Phone: Start: 12-30-2021 End: 12-30-2021 Patient encounter procedure Appointment [facility] Work Phone: Start: 12-23-2021 End: 12-23-2021 Patient encounter procedure Appointment [facility] Work Phone: Start: 12-23-2021 End: 12-23-2021 Mri any jt lower extrem w/o contrast matrl MRI right hip without contrast [facility] Work Phone: Start: 12-17-2021 End: 12-17-2021 Patient encounter procedure Appointment [facility] Work Phone: Start: 12-17-2021 End: 12-17-2021 Mri spinal canal lumbar w/o contrast material MRI lumbar without contrast [facility] Work Phone: Start: 12-17-2021 End: 12-17-2021 Radex spine lumbosacral minimum 4 views XR LUMBAR 4VWS FLEX/EX [facility] Work Phone: Start: 10-24-2021 End: 10-24-2021 Patient encounter procedure Appointment [facility] Work Phone: Start: 10-24-2021 End: 10-24-2021 Radex spine cervical 4 or 5 views XR CERVICAL 4VWS FLEX/EXT [facility] Work Phone: Payers Date Payer Category Payer Medicaid [id number] 2021 Medicare [id number] 1955 Unknown [id number] 2.16. [id number] 1955 Unknown [id number] 2.16. [id number] 1955 Unknown [id number] 2.16. [id number] 1955 Unknown [id number] 2.16. [id number] 1955 Unknown [id number] 2.16. [id number] 1956 Unknown [id number] 2.16. [id number] 1955 Unknown [id number] 2.16. [id number] 1955 Unknown [id number] 2.16. [id number] 1956 Unknown [id number] 2.16. [id number] 1956 Unknown [id number] 2.16.8 [id number] 1955 Unknown [id number] 2.16.8 [id number] 1955 Unknown [id number] 2.16.8 [id number] 1955 Unknown [id number] 2.16.8 [id number] Unknown [id number] Social History Date Type Detail Facility Start: 10-24-2021 End: 12-23-2021 Assertion Unknown if ever smoked [facility] [facility] Work Phone: Clinical Note 07-18-2022 Note Date & Type Note Facility 07-18-2022 Note . MICRO - Microbiology PROCEDURE: Blood Culture (bacterial) [*1] SOURCE: Blood BODY SITE: COLLECTED DATE/TIME: 07/11/2022 13:56 EDT RECEIVED DATE/TIME: 07/12/2022 22:27 EDT START DATE/TIME: 07/12/2022 22:27 EDT FREE TEXT SOURCE: FINAL REPORTS Final Report [] Verified Date/Time/Personnel: 07/17/2022 22:59 EDT Blood Culture: No Growth at 5 days. PRELIMINARY REPORTS Preliminary Report [] Verified Date/Time/Personnel: 07/12/2022 22:59 EDT Culture has been received in lab and is no growth to date. Routine cultures are held for 5 days. Performing Locations *1: This test was performed at: [address], [address] [place] [address] ([place]) Clinical Note 07-18-2022 Note Date & Type Note Facility 07-18-2022 Note . MICRO - Microbiology PROCEDURE: Blood Culture (bacterial) [*1] SOURCE: Blood BODY SITE: COLLECTED DATE/TIME: 07/11/2022 14:11 EDT RECEIVED DATE/TIME: 07/12/2022 22:27 EDT START DATE/TIME: 07/12/2022 22:27 EDT FREE TEXT SOURCE: FINAL REPORTS Final Report [] Verified Date/Time/Personnel: 07/17/2022 22:59 EDT Blood Culture: No Growth at 5 days. PRELIMINARY REPORTS Preliminary Report [] Verified Date/Time/Personnel: 07/12/2022 22:59 EDT Culture has been received in lab and is no growth to date. Routine cultures are held for 5 days. Performing Locations *1: This test was performed at: [address], [address] [place] [address] ([place]) Evaluation note Note Date & Type Note Facility Evaluation note There may be informa tion available, but it has not been provided by the sender. [facility] Work Phone: Instructions Note Date & Type Note Facility Instructions CompletedPatient advised to follow-up with Primary Care Physician for BMI management. [facility] Work Phone: Instructions Note Date & Type Note Facility Instructions CompletedPatient advised to follow-up with Primary Care Physician for BMI management. [facility] Work Phone: Instructions Note Date & Type Note Facility Instructions CompletedPatient advised to follow-up with Primary Care Physician for BMI management. [facility] Work Phone: Summary Purpose Family History No Family History Records FoundNo Family History Records FoundThere may be information available, but it has not been provided by the sender.There may be information available, but it has not been provided by the sender.There may be information available, but it has not been provided by the sender.No Family History Records FoundNo Family History Records FoundNo Family History Records FoundNo Family History Records FoundNo Family History Records FoundNo Family History Records Found Advance Directives No Advanced Directives Records FoundNo Advanced Directives Records FoundThere may be information available, but it has not been provided by the sender.There may be information available, but it has not been provided by the sender.There may be information available, but it has not been provided by the sender.No Advanced Directives Records FoundNo Advanced Directives Records FoundNo Advanced Directives Records FoundNo Advanced Directives Records FoundNo Advanced Directives Records FoundNo Advanced Directives Records Found Chief Complaint Chief Complaint Description Start Date neck post C5-C6 anterior cer vical discectomy and fusion with plate application on 2020 Preliminary chief co mplaint data, not yet signed by the author as of Chief Complaint Description Start Date lower back pain Preliminary chief co mplaint data, not yet signed by the author as of Chief Complaint Description Start Date right hip pain Preliminary chief co mplaint data, not yet signed by the author as of Additional Source Comments INFORMATION SOURCE (unrecogn ized section and content) DATE CREATED AUTHOR 01/26/2020 [facility] DATE CREATED AUTHOR AUTHOR'S ORGANIZ ATION 07/23/2020 [facility] DATE CREATED AUTHOR AUTHOR'S ORGANIZ ATION 07/18/2022 [facility] ([place]) DATE CREATED AUTHOR AUTHOR'S ORGANIZ ATION 02/25/2023 [facility] DATE CREATED AUTHOR AUTHOR'S ORGANIZ ATION 04/17/2023 [facility] DATE CREATED AUTHOR AUTHOR'S ORGANIZ ATION 08/27/2023 [facility] DATE CREATED AUTHOR AUTHOR'S ORGANIZ ATION 11/26/2023 [facility] DATE CREATED AUTHOR AUTHOR'S ORGANIZ ATION 06/10/2024 [facility] Reason for Visit (unrecogniz ed section and content) Reason For Visit Description Postop - subsequent visit Preliminary reason f or visit data, not yet signed by the author as of neck post C5-C6 anterior cer vical discectomy and fusion with plate application on 2020 Reason For Visit Description Start Date Follow-up by complaint Preliminary reason f or visit data, not yet signed by the author as of lower back pain Reason For Visit Description Start Date New Complaint Preliminary reason f or visit data, not yet signed by the author as of right hip pain FOR RECORDS PERTAINING TO PATIENTS WHO ARE OR HAVE BEEN ENROLLED IN A CHEMICAL DEPENDENCY/SUBSTANCEABUSE PROGRAM, SOME INFORMATION MAY BE OMITTED. This clinical summary was aggregated from multiple sources. Caution should be exercised in using it in the provision of clinical care. This summary normalizes information from multiple sources, and as a consequence, information in this document may materially change the coding, format and clinical context of patient data. In addition, data may be omitted in some cases. CLINICAL DECISIONS SHOULD BE BASED ON THE PRIMARY CLINICAL RECORDS. [employer] provides no warranty or guarantee of the accuracy or completeness of information in this document.
--- NOTE | 2024-07-10 08:45 | MRI_ITS ---
HISTORY: RADICULOPATHY. TECHNIQUE: Multiplanar and multisequence MR images of the cervical spine were obtained without contrast. 265 images. COMPARISON: None. FINDINGS: VERTEBRAE: Vertebral body heights are maintained. Soft tissue thickening and cystic change posterior to C1-2, likely pannus related to arthritis without significant central canal stenosis. Artifact from anterior spinal fusion hardware of C5-6. Mild degenerative endplate changes at multiple levels. VERTEBRAL ALIGNMENT: No anterior or posterior subluxation. SPINAL CORD: Cervical cord signal and morphology within normal limits. SOFT TISSUES: No prevertebral fluid collection. INTERVERTEBRAL DISCS: C2-3: No significant posterior disc protrusion , central canal stenosis, or foraminal narrowing. C3-4: Mild-moderate disc bulge with uncovertebral and facet arthropathy resulting in mild central canal stenosis and right foraminal narrowing. C4-5: Very mild posterior disc bulge osteophyte complex without significant central canal stenosis or foraminal narrowing. C5-6: Interbody fusion material. No recurrent posterior disc protrusion. Residual degenerative change with osteophytes resulting in mild narrowing of the thecal sac and bilateral foraminal narrowing. C6-7: Mild posterior disc bulge osteophyte complex with uncovertebral and facet arthropathy resulting in mild central canal stenosis. No significant foraminal narrowing. C7-T1: Mild central disc protrusion resulting in mild central canal stenosis. No significant foraminal narrowing. MRI/Spine Cervical (Routine) IMPRESSION: ACDF C5-6. Multilevel degenerative disc disease resulting in mild spinal canal stenosis and foraminal narrowing as above. 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 Electronically Signed: Gricelda Kirby MD at 14:09 EDT ,
== END | disposition home or self-care (01) ==
LOC: MRI 08:07
PROVIDERS: PCP Family Medicine; Referring Provider Family Medicine; Visit Provider Family Medicine
DX: M54.12 Radiculopathy, cervical region (principal)
CPT/HCPCS: 72141

== ENCOUNTER → 2024-12-07 | Outpatient (CLI) | payer MEDICARE, SELFPAY ==
--- NOTE | 2024-12-07 10:38 | BI_ITS ---
EXAM: SCRN MAMM (CAD)W/CHELO BILAT DATE: 12/07/2024 CLINICAL HISTORY: F, Age 69 y/o , SCREENING BREAST CANCER RISK ASSESSMENT: Does not appear to have been calculated. TECHNIQUE: Bilateral screening digital breast tomosynthesis with 2D and 3D images. Computer aided detection. COMPARISON: Prior exam(s) dated 12/07/2023 FINDINGS: TISSUE DENSITY: The breast tissue is composed of scattered area of fibroglandular density. Bilateral Breast Mammographic Findings: Benign vascular calcifications and round microcalcifications are seen in both breasts. Stable nodular masslike densities are seen in both breasts. No suspicious masses, suspicious clustered microcalcifications, architectural distortion or secondary sign of malignancy is identified in either breast. BI/SCRN MAMM (CAD)W/CHELO BILAT IMPRESSION: Right Breast: BIRADS 2 BENIGN FINDING. Left Breast: BIRADS 2 BENIGN FINDING. OVERALL FINAL ASSESSMENT: BIRADS 2 BENIGN FINDING RECOMMENDATION: Routine annual follow-up in 1 Year A letter with findings and recommendations will be mailed to the patient. Reading Location: [id number]
== END | disposition home or self-care (01) ==
LOC: OPBI 10:36
PROVIDERS: PCP Family Medicine; Referring Provider Family Medicine; Visit Provider Family Medicine
DX: Z12.31 Encounter for screening mammogram for malignant neoplasm of breast (principal)
CPT/HCPCS: 77063; 77067

== ENCOUNTER → 2025-07-16 | Outpatient (CLI) | payer MEDICARE, SELFPAY ==
--- NOTE | 2025-07-16 15:39 | CT_ITS ---
PROCEDURE: CT/Sinus/Facial Bone
== END | disposition home or self-care (01) ==
LOC: CT 15:32
PROVIDERS: PCP Family Medicine; Referring Provider Otolaryngology; Visit Provider Otolaryngology
DX: J32.8 Other chronic sinusitis (principal)
CPT/HCPCS: 70486